=== PATIENT | female | born 1985 | race Caucasian/White ===

== ENCOUNTER 2016-10-09 21:54 | Emergency (ER) | payer OTHER ==
[2016-10-09] MEDS ORDERED: ONDANSETRON 4MG/2ML VIAL (J2405) As Ordered ONE (23:42)
[2016-10-10 00:29] LABS: BASO # 0.1 K/mm3 (0.0-0.2); EOS # 0.2 K/mm3 (0.0-0.50); EOS % 2.3 % (0.0-3.0); LARGE UNSTAINED CELL # 0.1 K/mm3 (0.0-0.4); LARGE UNSTAINED CELL % 1.3 % (0.0-4.0); LYMPH # 2.8 K/mm3 (1.5-4.5); LYMPH % 25.7 % (24.0-44.0); MEAN CORPUSCULAR HEMOGLOBIN 29.8 pg (27.0-33.0); MEAN CORPUSCULAR HGB CONC 34.8 g/dl (32.0-36.5); MEAN CORPUSCULAR VOLUME 85.6 fl (80.0-96.0); MONO # 0.4 K/mm3 (0.0-0.8); MONO % 3.6 % (0.0-5.0); NEUTROPHILS # 6.9 K/mm3 (1.8-7.7); PLATELET COUNT, AUTOMATED 193 k/mm3 (150-450); RED CELL DISTRIBUTION WIDTH 13.3 % (11.5-14.5); WHITE BLOOD COUNT 10.5 K/mm3 (4.0-10.0)
[2016-10-10 01:01] LABS: ANION GAP 7 MEQ/L (8-16); BLOOD UREA NITROGEN 12 MG/DL (7-18); CALCIUM LEVEL 8.1 MG/DL (8.5-10.1); CARBON DIOXIDE LEVEL 29 MEQ/L (21-32); CHLORIDE LEVEL 104 MEQ/L (98-107); CREATININE FOR GFR 0.61 MG/DL (0.55-1.02); GLOMERULAR FILTRATION RATE > 60.0 (>60); GLUCOSE, FASTING 82 MG/DL (70-105); HCG, SERUM QUANTITATIVE 17526 MIU/ML; POTASSIUM SERUM 3.6 MEQ/L (3.5-5.1); SODIUM LEVEL 140 MEQ/L (136-145)
--- NOTE | 2016-10-10 02:00 | REPUSA ---
CLINICAL HISTORY: determination. TECHNIQUE: Transabdominal ultrasound of the pelvis was performed. FINDINGS: Single, live intrauterine gestation. The estimated gestation age is 6 weeks and one day. pole measurement 5 mm. heart rate 96 beats per minute. No subchorionic hemorrhage was identified. No adnexal abnormality is noted. IMPRESSION: Single, intrauterine gestation. heart rate 96 beats per minute.
--- NOTE | 2016-10-10 02:05 | EDDOCDS ---
Physician Documentation [facility] Name: Esperanza Meek Age: 31 yrs Sex: Female : 1985 Arrival Date: 10/09/2016 Time: 21:54 Bed I7 / 29 Private MD: SD Theodore Davis Disposition: 10/10/16 01:46 Discharged to Home/Self Care. Impression: Mild hyperemesis gravidarum, Abdominal and pelvic pain, state - single intrauterine , first trimester. - Condition is Stable. - Discharge Instructions: First Trimester of , Abdominal Pain During , Hyperemesis Gravidarum. - Prescriptions for Vitamin 27- 0.8 mg Oral Tablet - take 1 tablet by ORAL route once daily; 30 tablet. Diclegis 10- 10 mg Oral - take 2 tablets by ORAL route 2 times per day; 30 tablet. - Local Pharmacy Hours, Medication Reconciliation form. - Follow up: Danny Nelson; When: Call to arrange an appointment; Reason: Recheck today's complaints, To establish care. Follow up: Emergency Department; When: As needed; Reason: Worsening of conditions, vaginal bleeding, severe vomiting or pain. - Problem is new. - Symptoms have improved. 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 discuss your current medications and recommendations for continued use with their office Historical: - Allergies: Doxycycline (Hives); Kiwi (Actinidia Chinensis); Latexshortness of breath; Novocain (Vomit); PENICILLINS (Anaphylaxis, Hives); SULFA (SULFONAMIDES) (Anaphylaxis, Hives); walnuts; Phenergan; - Home Meds: 1. pregabalin 75 mg Oral cap 1 cap 2 times per day 2. Suboxone 12-3 mg SL film 1.5 film - PMHx: Anxiety; addiction (oxycodone); Asthma; insomnia; Endometriosis; Fibromyalgia; - PSHx: right shoulder repair; right inguinal hernia; Cholecystectomy; left tube and ovary removed; - Social history: Smoking status: Patient uses tobacco products, current every day smoker. No barriers to communication noted, The patient speaks fluent Italian, Speaks appropriately for age, Preferred Language: Italian. - Family history: Not pertinent. - : The pt / caregiver states he / she is not on anticoagulants. Home medication list is obtained from the patient. - Exposure Risk Screening:: None identified. 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 4 in. (162.56 cm) (R); Pain /10; 10/10 02:04 BP 105 / 59; Pulse 64; Resp 16; Temp 98; Pulse Ox 98% on R/A; ld5 10/09 21:56 Body Mass Index 30.90 (81.65 kg, 162.56 cm) gr2 MDM: 10/09 23:14 Financial registration complete. pm4 23:37 IV Saline Lock ordered. ck7 23:37 NS 0.9% 1000 ml IV at bolus once ordered. ck7 23:37 Ondansetron 4 mg IVP once ordered. ck7 23:38 Urine Culture Ordered. EDMS 23:38 US 1st trimester Ordered. EDMS 23:38 CBC with Diff Ordered. EDMS 23:38 MED Profile Ordered. EDMS 23:38 UA Ordered. EDMS 23:38 Hcg, Serum Quantitative Ordered. EDMS 23:38 Type & Screen Ordered. EDMS 10/10 00:50 [facility] Payment Agreement was scanned into [employer] and attached to record. pm4 00:52 CBC with Diff Reviewed. ck7 00:52 UA Reviewed. ck7 01:12 MED Profile Reviewed. ar2 01:12 Hcg, Serum Quantitative Reviewed. ar2 01:12 Type & Screen Reviewed. ar2 Administered Medications: 10/09 23:57 Drug: NS 0.9% 1000 ml [sodium chloride 0.9 % intravenous solution] Route: IV; Rate: ld5 bolus; Site: left antecubital; 10/10 00:57 Follow up: IV Status: Completed infusion; IV Intake: 1000ml ld5 10/09 23:57 Drug: Ondansetron 4 mg [ondansetron HCl 2 mg/mL intravenous solution (2 mL)] Route: ld5 IVP; Site: left antecubital; 10/10 00:57 Follow up: Response: Nausea is decreased ld5 Signatures: Dispatcher [employer] EDSuzy Valdovinos RN RN lf1 Tomasz Castro, PAChenchoC PAChenchoC ar2 Francoise Rose RN RN ld5 Adolfo Baugh RPA-C RPA-Cck7 Zhou Nielsen, Reg Reg pm4 The chart was reviewed and I authenticate all verbal orders and agree with the evaluation and treatment provided.Attachments: 00:50 [facility] [place] pm4 MTDD
--- NOTE | 2016-10-10 02:06 | EDDOCDS ---
Nurse's Notes [facility] Name: Esperanza Meek Age: 31 yrs Sex: Female : 1985 Arrival Date: 10/09/2016 Time: 21:54 Bed I7 / 29 Private MD: MT Theodore Fulton Diagnosis: Mild hyperemesis gravidarum;Abdominal and pelvic pain; state-single intrauterine , first trimester Presentation: 10/09 22:07 Presenting complaint: Patient states: Cramping and lower abdominal pain with nausea lf1 that began two days after a home test was positive. Pt reports that she has a history of endometriosis and a previous tubal . Pain is currently 4/10 and in the right lower abdomen. Risk factors: the patient reports no vaginal bleeding. Adult Sepsis Screening: The patient does not have new or worsening altered mentation. Patient's respiratory rate is less than 22. Systolic blood pressure is greater than 100. Patient has a qSOFA score of 0- Negative Sepsis Screen. Suicide/Homicide risk assessment- the patient denies having any suicidal and/or homicidal ideations and does not present with any other emotional, behavioral or mental health complaints. Status: Patient is not a protective services case worker or dependent. Transition of care: patient was not received from another setting of care. 22:07 Acuity: ERIC Level 3 lf1 22:07 Method Of Arrival: Walkin/Carried/Asstd lf1 Triage Assessment: 22:14 General: Appears in no apparent distress, Behavior is anxious. Pain: Location: right lf1 lower quadrant and left lower quadrant Pain At worst was 5 out of 10 on a pain scale. HIV screening NA for this visit Offered previously. Neurological: Level of Consciousness is awake, alert. EENT: No deficits noted. Respiratory: Respiratory effort is even, unlabored. GI: Reports lower abdominal pain, nausea, vomiting. Derm: Skin is normal. 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 pregabalin 75 mg Oral cap 1 cap 2 times per day 2. Suboxone 12-3 mg SL film 1.5 film - PMHx: Anxiety; addiction (oxycodone); Asthma; insomnia; Endometriosis; Fibromyalgia; - PSHx: right shoulder repair; right inguinal hernia; Cholecystectomy; left tube and ovary removed; - Social history: Smoking status: Patient uses tobacco products, current every day smoker. No barriers to communication noted, The patient speaks fluent Estonian, Speaks appropriately for age, Preferred Language: Estonian. - Family history: Not pertinent. - : The pt / caregiver states he / she is not on anticoagulants. Home medication list is obtained from the patient. - Exposure Risk Screening:: None identified. Screenin:16 Screening information is obtained from the patient. Fall risk: No risks identified. lf1 Assistance ADL's: requires no assistance with activities of daily living. Abuse/DV Screen: The patient / caregiver reports he/she is: not in a situation that causes fear, pain or injury. Nutritional screening: No deficits noted. Advance Directives: Currently, there is no health care proxy. There is no active DNR order. home support is adequate. Assessment: 23:57 General: Appears in no apparent distress, Behavior is appropriate for age. Pain: ld5 Location: left lower quadrant and right lower quadrant Pain currently is 8 out of 10 on a pain scale. Quality of pain is described as sharp, stabbing. Neurological: Level of Consciousness is awake, obeys commands. Neurological: Reports dizziness. Respiratory: Airway is patent Respiratory effort is even, unlabored, Breath sounds are clear bilaterally. GI: Abdomen is non- distended Bowel sounds present X 4 quads. Abd is tender to palpation in right lower quadrant Reports lower abdominal pain, nausea, vomiting. : Denies vaginal bleeding. Derm: Skin is intact, Skin is dry. 10/10 01:00 General: Pt laying quietly in bed. Warm blankets provided. Awaiting US. Will continue ld5 to monitor. 01:32 General: Pt returned from US. Tolerated well. Ambulated to bathroom with no distress. ld5 Will continue to monitor. 02:04 General: Appears in no apparent distress. Pain: Pain currently is 2 out of 10 on a pain ld5 scale. Neurological: Level of Consciousness is awake, obeys commands. Respiratory: Airway is patent Respiratory effort is even, unlabored. Vital Signs: 10/09 21:56 BP 117 / 65; Pulse 101; Resp 18 S; Temp 97.3(O); Pulse Ox 100% on R/A; Weight 81.65 kg gr2 (R); Height 5 ft. 4 in. (162.56 cm) (R); Pain 6/10; 10/10 02:04 BP 105 / 59; Pulse 64; Resp 16; Temp 98; Pulse Ox 98% on R/A; ld5 10/09 21:56 Body Mass Index 30.90 (81.65 kg, 162.56 cm) gr2 Vitals: 10/09 21:56 Log In Time: October 09, 2016 at 21:56. gr2 ED Course: 21:56 Patient visited by Amanda Norris. gr2 21:56 [facility] is Private Physician. gr2 21:56 Patient moved to Waiting gr2 21:57 Patient visited by Amanda Norris. gr2 21:57 Patient moved to Pre RCE gr2 22:09 Triage Initiated lf1 22:26 Patient moved to Triage 3 cln 22:59 Adolfo Baugh RPA-C is PHCP. ck7 22:59 Bhupinder Coleman DO is Attending Physician. ck7 22:59 Patient visited by Adolfo Baugh RPA-C. ck7 23:29 Patient visited by Adolfo Baugh RPA-C. ck7 23:38 Patient moved to I7 / cz 23:57 The patient / caregiver is instructed regarding the plan of care and ED course. Patient michelle5 has correct armband on for positive identification. Placed in gown. Bed in low position. Call light in reach. 23:57 Type & Screen Sent. ld5 23:57 Hcg, Serum Quantitative Sent. ld5 23:57 Urine Culture Sent. ld5 23:57 UA Sent. ld5 23:57 MED Profile Sent. ld5 23:57 CBC with Diff Sent. ld5 23:57 Inserted saline lock: 20 gauge in left antecubital area and blood collected. The ld5 patient tolerated the procedure well. Labs drawn. (by ED staff). Sent per order to lab. Urine collected. Clean catch specimen. Urine specimen sent to lab. 23:59 Patient visited by Francoise Rose RN. ld5 10/10 00:45 Patient visited by Adolfo Baugh RPA-C. ck7 00:50 [facility] Payment Agreement was scanned into [employer] and attached to record. pm4 00:57 PHCP role handed off by Adolfo Baugh RPA-C ar2 00:57 Tomasz Castro PA-C is PHCP. ar2 01:31 Patient visited by Francoise Rose RN. ld5 01:32 Patient visited by Francoise Rose RN. ld5 01:45 Danny Nelson is Referral Physician. ar2 02:04 Discontinued lock intact, bleeding controlled, pressure dressing applied, No ld5 redness/swelling at site. No procedures done that require assistance. 02:05 Patient visited by Francoise Rose RN. ld5 Administered Medications: 10/09 23:57 Drug: NS 0.9% 1000 ml [sodium chloride 0.9 % intravenous solution] Route: IV; Rate: ld5 bolus; Site: left antecubital; 10/10 00:57 Follow up: IV Status: Completed infusion; IV Intake: 1000ml ld5 10/09 23:57 Drug: Ondansetron 4 mg [ondansetron HCl 2 mg/mL intravenous solution (2 mL)] Route: ld5 IVP; Site: left antecubital; 10/10 00:57 Follow up: Response: Nausea is decreased ld5 Intake: 00:57 IV: 1000.00ml; Total: 1000.00ml. ld5 Order Results: Lab Order: CBC with Diff; SPEC'M 10/09/16 23:55 Test: WHITE BLOOD COUNT; Value: 10.5; Range: 4.0-10.0; Abnormal: Above high normal; Units: K/mm3; Status: F Test: RED BLOOD COUNT; Value: 4.45; Range: 4.00-5.40; Units: M/mm3; Status: F Test: HEMOGLOBIN; Value: 13.3; Range: 12.0-16.0; Units: g/dl; Status: F Test: HEMATOCRIT; Value: 38.1; Range: 36.0-47.0; Units: %; Status: F Test: MEAN CORPUSCULAR VOLUME; Value: 85.6; Range: 80.0-96.0; Units: fl; Status: F Test: MEAN CORPUSCULAR HEMOGLOBIN; Value: 29.8; Range: 27.0-33.0; Units: pg; Status: F Test: MEAN CORPUSCULAR HGB CONC; Value: 34.8; Range: 32.0-36.5; Units: g/dl; Status: F Test: RED CELL DISTRIBUTION WIDTH; Value: 13.3; Range: 11.5-14.5; Units: %; Status: F Test: PLATELET COUNT, AUTOMATED; Value: 193; Range: 150-450; Units: k/mm3; Status: F Test: NEUTROPHILS %; Value: 66.0; Range: 36.0-66.0; Units: %; Status: F Test: LYMPH %; Value: 25.7; Range: 24.0-44.0; Units: %; Status: F Test: MONO %; Value: 3.6; Range: 0.0-5.0; Units: %; Status: F Test: EOS %; Value: 2.3; Range: 0.0-3.0; Units: %; Status: F Test: BASO %; Value: 1.0; Range: 0.0-1.0; Units: %; Status: F Test: LARGE UNSTAINED CELL %; Value: 1.3; Range: 0.0-4.0; Units: %; Status: F Test: NEUTROPHILS #; Value: 6.9; Range: 1.8-7.7; Units: K/mm3; Status: F Test: LYMPH #; Value: 2.8; Range: 1.5-4.5; Units: K/mm3; Status: F Test: MONO #; Value: 0.4; Range: 0.0-0.8; Units: K/mm3; Status: F Test: EOS #; Value: 0.2; Range: 0.0-0.50; Units: K/mm3; Status: F Test: BASO #; Value: 0.1; Range: 0.0-0.2; Units: K/mm3; Status: F Test: LARGE UNSTAINED CELL #; Value: 0.1; Range: 0.0-0.4; Units: K/mm3; Status: F Lab Order: MED Profile; SPEC'M 10/09/16 23:55 Test: GLUCOSE, FASTING; Value: 82; Range: 70-105; Units: MG/DL; Status: F Test: BLOOD UREA NITROGEN; Value: 12; Range: 7-18; Units: MG/DL; Status: F Test: CREATININE FOR GFR; Value: 0.61; Range: 0.55-1.02; Units: MG/DL; Status: F Test: GLOMERULAR FILTRATION RATE; Value: > 60.0; Range: >60; Status: F Test: SODIUM LEVEL; Value: 140; Range: 136-145; Units: MEQ/L; Status: F Test: POTASSIUM SERUM; Value: 3.6; Range: 3.5-5.1; Units: MEQ/L; Status: F Test: CHLORIDE LEVEL; Value: 104; Range: 98-107; Units: MEQ/L; Status: F Test: CARBON DIOXIDE LEVEL; Value: 29; Range: 21-32; Units: MEQ/L; Status: F Test: ANION GAP; Value: 7; Range: 8-16; Abnormal: Below low normal; Units: MEQ/L; Status: F Test: CALCIUM LEVEL; Value: 8.1; Range: 8.5-10.1; Abnormal: Below low normal; Units: MG/DL; Status: F Test Note: ; Units are mL/min/1.73 m2 Chronic Kidney Disease Staging per NKF: Stage I & II GFR >=60 Normal to Mildly Decreased Stage III GFR 30-59 Moderately Decreased Stage IV GFR 15-29 Severely Decreased Stage V GFR <15 Very Little GFR Left ESRD GFR <15 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 Lab Order: UA; SPEC'M 10/09/16 23:55 Test: APPEARANCE, URINE; Value: HAZY; Range: CLEAR; Status: F Test: COLOR, URINE; Value: YELLOW; Range: YELLOW; Status: F Test: PH,URINE; Value: 6.0; Range: 5.0-9.0; Units: UNITS; Status: F Test: SPECIFIC GRAVITY URINE AUTO; Value: 1.025; Range: 1.002-1.035; Status: F Test: PROTEIN, URINE AUTO; Value: NEGATIVE; Range: NEGATIVE; Units: mg/dL; Status: F Test: GLUCOSE, URINE (UA) AUTO; Value: NEGATIVE; Range: NEGATIVE; Units: mg/dL; Status: F Test: KETONE, URINE AUTO; Value: NEGATIVE; Range: NEGATIVE; Units: mg/dL; Status: F Test: UROBILINOGEN, URINE AUTO; Value: 0.2; Range: 0.0-2.0; Units: mg/dL; Status: F Test: BILIRUBIN, URINE AUTO; Value: NEGATIVE; Range: NEGATIVE; Status: F Test: NITRITE, URINE AUTO; Value: NEGATIVE; Range: NEGATIVE; Status: F Test: LEUKOCYTE ESTERASE, URINE AUTO; Value: NEGATIVE; Range: NEGATIVE; Status: F Test: BLOOD, URINE BLOOD; Value: NEGATIVE; Range: NEGATIVE; Status: F Test: WBC, URINE AUTO; Value: 0; Range: 0-3; Units: /HPF; Status: F Test: RBC, URINE AUTO; Value: 1; Range: 0-3; Units: /HPF; Status: F Test: BACTERIA, URINE AUTO; Value: 1+; Range: NEGATIVE; Abnormal: Above high normal; Status: F Test: SQUAMOUS EPITHELIAL CELL UR AU; Value: 6; Range: 0-6; Units: /HPF; Status: F Test: MUCUS, URINE; Value: SMALL; Range: NEGATIVE; Status: F Test: HYALINE CAST, URINE AUTO; Value: 0; Range: 0-1; Units: /LPF; Status: F Lab Order: Hcg, Serum Quantitative; SPEC'M 10/09/16 23:55 Test: HCG, SERUM QUANTITATIVE; Value: [id number]; Units: MIU/ML; Status: F Test Note: ; GESTATIONAL AGE APPROXIMATE HCG RANGE (MIU/ML) 0.2-1 WEEK 5-50 1-2 WEEKS 50-500 2-3 WEEKS 100-5,000 3-4 WEEKS 500-10,000 4-5 WEEKS 1,000-50,000 5-6 WEEKS 10,000-100,000 6-8 WEEKS 15,000-200,000 2-3 MONTHS 10,000-100,000 NON FEMALES LESS THAN 3.0 Patient samples may contain human heterophilic antibodies that could react with immunoassays to give falsely elevated or depressed results. This assay has been designed to minimize interference from heterophilic antibodies. Elevated hCG levels have also been associated with trophoblastic disease and nontrophoblastic neoplasms. The possibility of having these diseases should be considered before a diagnosis of is made. This test is not intended for use as a surrogate marker for aiding in the diagnosis or monitoring the treatment of cancer patients. Siemens avolution methodology. Lab Order: Type & Screen; SPEC'M 10/09/16 23:55 Test: BLOOD TYPE; Value: A POS; Status: F Test: AB SCREEN (INDIRECT CINDY)GEL; Value: NEGATIVE; Status: F Outcome: 01:46 Discharge ordered by Provider. ar2 02:04 Discharge Assessment: Patient awake, alert and oriented x 3. No cognitive and/or ld5 functional deficits noted. Patient verbalized understanding of disposition instructions. patient administered narcotics - no. The following High Risk Discharge criteria are identified: None. Discharged to home ambulatory. Condition: stable. Discharge instructions given to patient, Instructed on discharge instructions, follow up and referral plans. medication usage, Demonstrated understanding of instructions, medications, Pt was receptive of discharge instructions/ teaching. Prescriptions given X 2. Ultrasound Study completed. Property :Personal belongings accompany Pt. 02:05 Patient left the ED. ld5 Signatures: Andrew Langley, RN RN cz Suzy Moreno,RN RN lf1 Tomasz Castro, PAMed PAMed ar2 Francoise Rose,RN RN ld5 Adolfo Baugh RPA-C RPA-Eduardo7 Amanda Norris gr2 Judit Mata, ELECTRICIAN MASTER ELECTRICIAN MASTER manjun Zhou Nielsen, Reg Reg pm4 MTDD
--- NOTE | 2016-10-12 03:06 | EDDOCDS ---
Nurse's Notes [facility] Name: Esperanza Meek Age: 31 yrs Sex: Female : 1985 Arrival Date: 10/09/2016 Time: 21:54 Bed I7 / 29 Private MD: [place] Theodore [place] Diagnosis: Mild hyperemesis gravidarum;Abdominal and pelvic pain; state-single intrauterine , first trimester Presentation: 10/09 22:07 Presenting complaint: Patient states: Cramping and lower abdominal pain with nausea lf1 that began two days after a home test was positive. Pt reports that she has a history of endometriosis and a previous tubal . Pain is currently 4/10 and in the right lower abdomen. Risk factors: the patient reports no vaginal bleeding. Adult Sepsis Screening: The patient does not have new or worsening altered mentation. Patient's respiratory rate is less than 22. Systolic blood pressure is greater than 100. Patient has a qSOFA score of 0- Negative Sepsis Screen. Suicide/Homicide risk assessment- the patient denies having any suicidal and/or homicidal ideations and does not present with any other emotional, behavioral or mental health complaints. Status: Patient is not a clinical services consultant or dependent. Transition of care: patient was not received from another setting of care. 22:07 Acuity: REIC Level 3 lf1 22:07 Method Of Arrival: Walkin/Carried/Asstd lf1 Triage Assessment: 22:14 General: Appears in no apparent distress, Behavior is anxious. Pain: Location: right lf1 lower quadrant and left lower quadrant Pain At worst was 5 out of 10 on a pain scale. HIV screening NA for this visit Offered previously. Neurological: Level of Consciousness is awake, alert. EENT: No deficits noted. Respiratory: Respiratory effort is even, unlabored. GI: Reports lower abdominal pain, nausea, vomiting. Derm: Skin is normal. 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 pregabalin 75 mg Oral cap 1 cap 2 times per day 2. Suboxone 12-3 mg SL film 1.5 film - PMHx: Anxiety; addiction (oxycodone); Asthma; insomnia; Endometriosis; Fibromyalgia; - PSHx: right shoulder repair; right inguinal hernia; Cholecystectomy; left tube and ovary removed; - Social history: Smoking status: Patient uses tobacco products, current every day smoker. No barriers to communication noted, The patient speaks fluent Lebanese, Speaks appropriately for age, Preferred Language: Lebanese. - Family history: Not pertinent. - : The pt / caregiver states he / she is not on anticoagulants. Home medication list is obtained from the patient. - Exposure Risk Screening:: None identified. Screenin:16 Screening information is obtained from the patient. Fall risk: No risks identified. lf1 Assistance ADL's: requires no assistance with activities of daily living. Abuse/DV Screen: The patient / caregiver reports he/she is: not in a situation that causes fear, pain or injury. Nutritional screening: No deficits noted. Advance Directives: Currently, there is no health care proxy. There is no active DNR order. home support is adequate. Assessment: 23:57 General: Appears in no apparent distress, Behavior is appropriate for age. Pain: ld5 Location: left lower quadrant and right lower quadrant Pain currently is 8 out of 10 on a pain scale. Quality of pain is described as sharp, stabbing. Neurological: Level of Consciousness is awake, obeys commands. Neurological: Reports dizziness. Respiratory: Airway is patent Respiratory effort is even, unlabored, Breath sounds are clear bilaterally. GI: Abdomen is non- distended Bowel sounds present X 4 quads. Abd is tender to palpation in right lower quadrant Reports lower abdominal pain, nausea, vomiting. : Denies vaginal bleeding. Derm: Skin is intact, Skin is dry. 10/10 01:00 General: Pt laying quietly in bed. Warm blankets provided. Awaiting US. Will continue ld5 to monitor. 01:32 General: Pt returned from US. Tolerated well. Ambulated to bathroom with no distress. ld5 Will continue to monitor. 02:04 General: Appears in no apparent distress. Pain: Pain currently is 2 out of 10 on a pain ld5 scale. Neurological: Level of Consciousness is awake, obeys commands. Respiratory: Airway is patent Respiratory effort is even, unlabored. Vital Signs: 10/09 21:56 BP 117 / 65; Pulse 101; Resp 18 S; Temp 97.3(O); Pulse Ox 100% on R/A; Weight 81.65 kg gr2 (R); Height 5 ft. 4 in. (162.56 cm) (R); Pain 6/10; 10/10 02:04 BP 105 / 59; Pulse 64; Resp 16; Temp 98; Pulse Ox 98% on R/A; ld5 10/09 21:56 Body Mass Index 30.90 (81.65 kg, 162.56 cm) gr2 Vitals: 10/09 21:56 Log In Time: October 09, 2016 at 21:56. gr2 ED Course: 21:56 Patient visited by Amanda Norris. gr2 21:56 [facility] is Private Physician. gr2 21:56 Patient moved to Waiting gr2 21:57 Patient visited by Amanda Norris. gr2 21:57 Patient moved to Pre RCE gr2 22:09 Triage Initiated lf1 22:26 Patient moved to Triage 3 cln 22:59 Adolfo Baugh RPA-C is PHCP. ck7 22:59 Bhupinder Coleman DO is Attending Physician. ck7 22:59 Patient visited by Adolfo Baugh RPA-C. ck7 23:29 Patient visited by Adolfo Baugh RPA-C. ck7 23:38 Patient moved to I7 / cz 23:57 The patient / caregiver is instructed regarding the plan of care and ED course. Patient michelle5 has correct armband on for positive identification. Placed in gown. Bed in low position. Call light in reach. 23:57 Type & Screen Sent. ld5 23:57 Hcg, Serum Quantitative Sent. ld5 23:57 Urine Culture Sent. ld5 23:57 UA Sent. ld5 23:57 MED Profile Sent. ld5 23:57 CBC with Diff Sent. ld5 23:57 Inserted saline lock: 20 gauge in left antecubital area and blood collected. The ld5 patient tolerated the procedure well. Labs drawn. (by ED staff). Sent per order to lab. Urine collected. Clean catch specimen. Urine specimen sent to lab. 23:59 Patient visited by Francoise Rose RN. ld5 10/10 00:45 Patient visited by Adolfo Baugh RPA-C. ck7 00:50 [facility] Payment Agreement was scanned into [employer] and attached to record. pm4 00:57 PHCP role handed off by Adolfo Baugh RPA-C ar2 00:57 Tomasz Castro PA-C is PHCP. ar2 01:31 Patient visited by Francoise Rose RN. ld5 01:32 Patient visited by Francoise Rose RN. ld5 01:45 Danny Nelson is Referral Physician. ar2 02:04 Discontinued lock intact, bleeding controlled, pressure dressing applied, No ld5 redness/swelling at site. No procedures done that require assistance. 02:05 Patient visited by Francoise Rose RN. ld5 02:37 US 1st trimester Returned. EDMS 10:15 T-Sheet-- Draft Copy was scanned into [employer] and attached to record. gb Administered Medications: 10/09 23:57 Drug: NS 0.9% 1000 ml [sodium chloride 0.9 % intravenous solution] Route: IV; Rate: ld5 bolus; Site: left antecubital; 10/10 00:57 Follow up: IV Status: Completed infusion; IV Intake: 1000ml ld5 10/09 23:57 Drug: Ondansetron 4 mg [ondansetron HCl 2 mg/mL intravenous solution (2 mL)] Route: ld5 IVP; Site: left antecubital; 10/10 00:57 Follow up: Response: Nausea is decreased ld5 Intake: 00:57 IV: 1000.00ml; Total: 1000.00ml. ld5 Order Results: Lab Order: CBC with Diff; SPEC'M 10/09/16 23:55 Test: WHITE BLOOD COUNT; Value: 10.5; Range: 4.0-10.0; Abnormal: Above high normal; Units: K/mm3; Status: F Test: RED BLOOD COUNT; Value: 4.45; Range: 4.00-5.40; Units: M/mm3; Status: F Test: HEMOGLOBIN; Value: 13.3; Range: 12.0-16.0; Units: g/dl; Status: F Test: HEMATOCRIT; Value: 38.1; Range: 36.0-47.0; Units: %; Status: F Test: MEAN CORPUSCULAR VOLUME; Value: 85.6; Range: 80.0-96.0; Units: fl; Status: F Test: MEAN CORPUSCULAR HEMOGLOBIN; Value: 29.8; Range: 27.0-33.0; Units: pg; Status: F Test: MEAN CORPUSCULAR HGB CONC; Value: 34.8; Range: 32.0-36.5; Units: g/dl; Status: F Test: RED CELL DISTRIBUTION WIDTH; Value: 13.3; Range: 11.5-14.5; Units: %; Status: F Test: PLATELET COUNT, AUTOMATED; Value: 193; Range: 150-450; Units: k/mm3; Status: F Test: NEUTROPHILS %; Value: 66.0; Range: 36.0-66.0; Units: %; Status: F Test: LYMPH %; Value: 25.7; Range: 24.0-44.0; Units: %; Status: F Test: MONO %; Value: 3.6; Range: 0.0-5.0; Units: %; Status: F Test: EOS %; Value: 2.3; Range: 0.0-3.0; Units: %; Status: F Test: BASO %; Value: 1.0; Range: 0.0-1.0; Units: %; Status: F Test: LARGE UNSTAINED CELL %; Value: 1.3; Range: 0.0-4.0; Units: %; Status: F Test: NEUTROPHILS #; Value: 6.9; Range: 1.8-7.7; Units: K/mm3; Status: F Test: LYMPH #; Value: 2.8; Range: 1.5-4.5; Units: K/mm3; Status: F Test: MONO #; Value: 0.4; Range: 0.0-0.8; Units: K/mm3; Status: F Test: EOS #; Value: 0.2; Range: 0.0-0.50; Units: K/mm3; Status: F Test: BASO #; Value: 0.1; Range: 0.0-0.2; Units: K/mm3; Status: F Test: LARGE UNSTAINED CELL #; Value: 0.1; Range: 0.0-0.4; Units: K/mm3; Status: F Lab Order: MED Profile; SPEC'M 10/09/16 23:55 Test: GLUCOSE, FASTING; Value: 82; Range: 70-105; Units: MG/DL; Status: F Test: BLOOD UREA NITROGEN; Value: 12; Range: 7-18; Units: MG/DL; Status: F Test: CREATININE FOR GFR; Value: 0.61; Range: 0.55-1.02; Units: MG/DL; Status: F Test: GLOMERULAR FILTRATION RATE; Value: > 60.0; Range: >60; Status: F Test: SODIUM LEVEL; Value: 140; Range: 136-145; Units: MEQ/L; Status: F Test: POTASSIUM SERUM; Value: 3.6; Range: 3.5-5.1; Units: MEQ/L; Status: F Test: CHLORIDE LEVEL; Value: 104; Range: 98-107; Units: MEQ/L; Status: F Test: CARBON DIOXIDE LEVEL; Value: 29; Range: 21-32; Units: MEQ/L; Status: F Test: ANION GAP; Value: 7; Range: 8-16; Abnormal: Below low normal; Units: MEQ/L; Status: F Test: CALCIUM LEVEL; Value: 8.1; Range: 8.5-10.1; Abnormal: Below low normal; Units: MG/DL; Status: F Test Note: ; Units are mL/min/1.73 m2 Chronic Kidney Disease Staging per NKF: Stage I & II GFR >=60 Normal to Mildly Decreased Stage III GFR 30-59 Moderately Decreased Stage IV GFR 15-29 Severely Decreased Stage V GFR <15 Very Little GFR Left ESRD GFR <15 on BLOCK CUTTER Lab Order: UA; SPEC'M 10/09/16 23:55 Test: APPEARANCE, URINE; Value: HAZY; Range: CLEAR; Status: F Test: COLOR, URINE; Value: YELLOW; Range: YELLOW; Status: F Test: PH,URINE; Value: 6.0; Range: 5.0-9.0; Units: UNITS; Status: F Test: SPECIFIC GRAVITY URINE AUTO; Value: 1.025; Range: 1.002-1.035; Status: F Test: PROTEIN, URINE AUTO; Value: NEGATIVE; Range: NEGATIVE; Units: mg/dL; Status: F Test: GLUCOSE, URINE (UA) AUTO; Value: NEGATIVE; Range: NEGATIVE; Units: mg/dL; Status: F Test: KETONE, URINE AUTO; Value: NEGATIVE; Range: NEGATIVE; Units: mg/dL; Status: F Test: UROBILINOGEN, URINE AUTO; Value: 0.2; Range: 0.0-2.0; Units: mg/dL; Status: F Test: BILIRUBIN, URINE AUTO; Value: NEGATIVE; Range: NEGATIVE; Status: F Test: NITRITE, URINE AUTO; Value: NEGATIVE; Range: NEGATIVE; Status: F Test: LEUKOCYTE ESTERASE, URINE AUTO; Value: NEGATIVE; Range: NEGATIVE; Status: F Test: BLOOD, URINE BLOOD; Value: NEGATIVE; Range: NEGATIVE; Status: F Test: WBC, URINE AUTO; Value: 0; Range: 0-3; Units: /HPF; Status: F Test: RBC, URINE AUTO; Value: 1; Range: 0-3; Units: /HPF; Status: F Test: BACTERIA, URINE AUTO; Value: 1+; Range: NEGATIVE; Abnormal: Above high normal; Status: F Test: SQUAMOUS EPITHELIAL CELL UR AU; Value: 6; Range: 0-6; Units: /HPF; Status: F Test: MUCUS, URINE; Value: SMALL; Range: NEGATIVE; Status: F Test: HYALINE CAST, URINE AUTO; Value: 0; Range: 0-1; Units: /LPF; Status: F Lab Order: Urine Culture; SPEC'M 10/09/16 23:55 Test: URINE CULTURE; Value: <EXTERNAL COMMENT eCWMed> FULL REPORT IN LAB NOTES (eCW and Medent).; Status: F Test: URINE CULTURE; Value: URINE CULTURE RESULT NO GROWTH CLINICAL SIGNIFICANCE 1 ORGANISM; Status: F Lab Order: Hcg, Serum Quantitative; SPEC'M 10/09/16 23:55 Test: HCG, SERUM QUANTITATIVE; Value: 18118; Units: MIU/ML; Status: F Test Note: ; GESTATIONAL AGE APPROXIMATE HCG RANGE (MIU/ML) 0.2-1 WEEK 5-50 1-2 WEEKS 50-500 2-3 WEEKS 100-5,000 3-4 WEEKS 500-10,000 4-5 WEEKS 1,000-50,000 5-6 WEEKS 10,000-100,000 6-8 WEEKS 15,000-200,000 2-3 MONTHS 10,000-100,000 NON FEMALES LESS THAN 3.0 Patient samples may contain human heterophilic antibodies that could react with immunoassays to give falsely elevated or depressed results. This assay has been designed to minimize interference from heterophilic antibodies. Elevated hCG levels have also been associated with trophoblastic disease and nontrophoblastic neoplasms. The possibility of having these diseases should be considered before a diagnosis of is made. This test is not intended for use as a surrogate marker for aiding in the diagnosis or monitoring the treatment of cancer patients. [employer] methodology. Lab Order: Type & Screen; SPEC'M 10/09/16 23:55 Test: BLOOD TYPE; Value: A POS; Status: F Test: AB SCREEN (INDIRECT CINDY)GEL; Value: NEGATIVE; Status: F Radiology Order: US 1st trimester Test: US 1st trimester REASON FOR EXAMINATION: R/O DEMISE; ; CLINICAL HISTORY: determination.; TECHNIQUE: Transabdominal ultrasound of the pelvis was performed.; FINDINGS:; Single, live intrauterine gestation.; The estimated gestation age is 6 weeks and one day.; pole measurement 5 mm.; heart rate 96 beats per minute.; No subchorionic hemorrhage was identified.; No adnexal abnormality is noted.; IMPRESSION:; Single, intrauterine gestation.; heart rate 96 beats per minute.; ; Outcome: 01:46 Discharge ordered by Provider. ar2 02:04 Discharge Assessment: Patient awake, alert and oriented x 3. No cognitive and/or ld5 functional deficits noted. Patient verbalized understanding of disposition instructions. patient administered narcotics - no. The following High Risk Discharge criteria are identified: None. Discharged to home ambulatory. Condition: stable. Discharge instructions given to patient, Instructed on discharge instructions, follow up and referral plans. medication usage, Demonstrated understanding of instructions, medications, Pt was receptive of discharge instructions/ teaching. Prescriptions given X 2. Ultrasound Study completed. Property :Personal belongings accompany Pt. 02:05 Patient left the ED. ld5 Signatures: Dispatcher [facility] HospitalFlexible Technologies, LLCGallup Indian Medical CenterAndrew Medina RN RN cz Mirela Mendoza, Reg Reg gb Moreno,Suzy,RN RN lf1 Tomasz Castro, PA-C PA-C ar2 Francoise Rose,FREDY RN ld5 Adolfo Baugh, RPA-C RPA-Cck7 Amanda Norris gr2 Esperanza, Judit, RATE REVIEWER RATE REVIEWER cln Zhou Nielsen, Reg Reg pm4 Chart Complete MTDD
--- NOTE | 2016-10-12 03:06 | EDDOCDS ---
Physician Documentation [facility] Name: Esperanza Meek Age: 31 yrs Sex: Female : 1985 Arrival Date: 10/09/2016 Time: 21:54 Bed I7 / 29 Private MD: [place] Theodore Davis Disposition: 10/10/16 01:46 Discharged to Home/Self Care. Impression: Mild hyperemesis gravidarum, Abdominal and pelvic pain, state - single intrauterine , first trimester. - Condition is Stable. - Discharge Instructions: First Trimester of , Abdominal Pain During , Hyperemesis Gravidarum. - Prescriptions for Vitamin 27- 0.8 mg Oral Tablet - take 1 tablet by ORAL route once daily; 30 tablet. Diclegis 10- 10 mg Oral - take 2 tablets by ORAL route 2 times per day; 30 tablet. - Local Pharmacy Hours, Medication Reconciliation form. - Follow up: Danny Nelson; When: Call to arrange an appointment; Reason: Recheck today's complaints, To establish care. Follow up: Emergency Department; When: As needed; Reason: Worsening of conditions, vaginal bleeding, severe vomiting or pain. - Problem is new. - Symptoms have improved. 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 discuss your current medications and recommendations for continued use with their office Historical: - Allergies: Doxycycline (Hives); Kiwi (Actinidia Chinensis); Latexshortness of breath; Novocain (Vomit); PENICILLINS (Anaphylaxis, Hives); SULFA (SULFONAMIDES) (Anaphylaxis, Hives); walnuts; Phenergan; - Home Meds: 1. pregabalin 75 mg Oral cap 1 cap 2 times per day 2. Suboxone 12-3 mg SL film 1.5 film - PMHx: Anxiety; addiction (oxycodone); Asthma; insomnia; Endometriosis; Fibromyalgia; - PSHx: right shoulder repair; right inguinal hernia; Cholecystectomy; left tube and ovary removed; - Social history: Smoking status: Patient uses tobacco products, current every day smoker. No barriers to communication noted, The patient speaks fluent Mohawk, Speaks appropriately for age, Preferred Language: Mohawk. - Family history: Not pertinent. - : The pt / caregiver states he / she is not on anticoagulants. Home medication list is obtained from the patient. - Exposure Risk Screening:: None identified. 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 4 in. (162.56 cm) (R); Pain 6/10; 10/10 02:04 BP 105 / 59; Pulse 64; Resp 16; Temp 98; Pulse Ox 98% on R/A; ld5 10/09 21:56 Body Mass Index 30.90 (81.65 kg, 162.56 cm) gr2 MDM: 10/09 23:14 Financial registration complete. pm4 23:37 IV Saline Lock ordered. ck7 23:37 NS 0.9% 1000 ml IV at bolus once ordered. ck7 23:37 Ondansetron 4 mg IVP once ordered. ck7 23:38 Urine Culture Ordered. EDMS 23:38 US 1st trimester Ordered. EDMS 23:38 CBC with Diff Ordered. EDMS 23:38 MED Profile Ordered. EDMS 23:38 UA Ordered. EDMS 23:38 Hcg, Serum Quantitative Ordered. EDMS 23:38 Type & Screen Ordered. EDMS 10/10 00:50 [facility] Payment Agreement was scanned into [employer] and attached to record. pm4 00:52 CBC with Diff Reviewed. ck7 00:52 UA Reviewed. ck7 01:12 MED Profile Reviewed. ar2 01:12 Hcg, Serum Quantitative Reviewed. ar2 01:12 Type & Screen Reviewed. ar2 10:15 T-Sheet-- Draft Copy was scanned into [employer] and attached to record. gb Administered Medications: 10/09 23:57 Drug: NS 0.9% 1000 ml [sodium chloride 0.9 % intravenous solution] Route: IV; Rate: ld5 bolus; Site: left antecubital; 10/10 00:57 Follow up: IV Status: Completed infusion; IV Intake: 1000ml ld5 10/09 23:57 Drug: Ondansetron 4 mg [ondansetron HCl 2 mg/mL intravenous solution (2 mL)] Route: ld5 IVP; Site: left antecubital; 10/10 00:57 Follow up: Response: Nausea is decreased ld5 Signatures: Dispatcher [employer] EDMirela Almonte, Reg Reg gb Suzy Moreno,RN RN lf1 Tomasz Castro, PAMed PAMed ar2 Francoise Rose RN RN ld5 Adolfo Baugh, RPAChenchoC RPA-Cck7 Zhou Nielsen, Reg Reg pm4 The chart was reviewed and I authenticate all verbal orders and agree with the evaluation and treatment provided.Attachments: 00:50 [facility] Payment Agreement pm4 10:15 T-Sheet-- Draft Copy gb Chart Complete MTDD
--- NOTE | 2016-10-12 03:06 | EDDOCDS ---
Physician Documentation [facility] Name: Esperanza Meek Age: 31 yrs Sex: Female : 1985 Arrival Date: 10/09/2016 Time: 21:54 Bed I7 / 29 Private MD: [place] Theodore Davis Disposition: 10/10/16 01:46 Discharged to Home/Self Care. Impression: Mild hyperemesis gravidarum, Abdominal and pelvic pain, state - single intrauterine , first trimester. - Condition is Stable. - Discharge Instructions: First Trimester of , Abdominal Pain During , Hyperemesis Gravidarum. - Prescriptions for Vitamin 27- 0.8 mg Oral Tablet - take 1 tablet by ORAL route once daily; 30 tablet. Diclegis 10- 10 mg Oral - take 2 tablets by ORAL route 2 times per day; 30 tablet. - Local Pharmacy Hours, Medication Reconciliation form. - Follow up: Danny Nelson; When: Call to arrange an appointment; Reason: Recheck today's complaints, To establish care. Follow up: Emergency Department; When: As needed; Reason: Worsening of conditions, vaginal bleeding, severe vomiting or pain. - Problem is new. - Symptoms have improved. 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 discuss your current medications and recommendations for continued use with their office Historical: - Allergies: Doxycycline (Hives); Kiwi (Actinidia Chinensis); Latexshortness of breath; Novocain (Vomit); PENICILLINS (Anaphylaxis, Hives); SULFA (SULFONAMIDES) (Anaphylaxis, Hives); walnuts; Phenergan; - Home Meds: 1. pregabalin 75 mg Oral cap 1 cap 2 times per day 2. Suboxone 12-3 mg SL film 1.5 film - PMHx: Anxiety; addiction (oxycodone); Asthma; insomnia; Endometriosis; Fibromyalgia; - PSHx: right shoulder repair; right inguinal hernia; Cholecystectomy; left tube and ovary removed; - Social history: Smoking status: Patient uses tobacco products, current every day smoker. No barriers to communication noted, The patient speaks fluent Frisian, Speaks appropriately for age, Preferred Language: Frisian. - Family history: Not pertinent. - : The pt / caregiver states he / she is not on anticoagulants. Home medication list is obtained from the patient. - Exposure Risk Screening:: None identified. 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 4 in. (162.56 cm) (R); Pain 6/10; 10/10 02:04 BP 105 / 59; Pulse 64; Resp 16; Temp 98; Pulse Ox 98% on R/A; ld5 10/09 21:56 Body Mass Index 30.90 (81.65 kg, 162.56 cm) gr2 MDM: 10/09 23:14 Financial registration complete. pm4 23:37 IV Saline Lock ordered. ck7 23:37 NS 0.9% 1000 ml IV at bolus once ordered. ck7 23:37 Ondansetron 4 mg IVP once ordered. ck7 23:38 Urine Culture Ordered. EDMS 23:38 US 1st trimester Ordered. EDMS 23:38 CBC with Diff Ordered. EDMS 23:38 MED Profile Ordered. EDMS 23:38 UA Ordered. EDMS 23:38 Hcg, Serum Quantitative Ordered. EDMS 23:38 Type & Screen Ordered. EDMS 10/10 00:50 [facility] Payment Agreement was scanned into [employer] and attached to record. pm4 00:52 CBC with Diff Reviewed. ck7 00:52 UA Reviewed. ck7 01:12 MED Profile Reviewed. ar2 01:12 Hcg, Serum Quantitative Reviewed. ar2 01:12 Type & Screen Reviewed. ar2 10:15 T-Sheet-- Draft Copy was scanned into [employer] and attached to record. gb Administered Medications: 10/09 23:57 Drug: NS 0.9% 1000 ml [sodium chloride 0.9 % intravenous solution] Route: IV; Rate: ld5 bolus; Site: left antecubital; 10/10 00:57 Follow up: IV Status: Completed infusion; IV Intake: 1000ml ld5 10/09 23:57 Drug: Ondansetron 4 mg [ondansetron HCl 2 mg/mL intravenous solution (2 mL)] Route: ld5 IVP; Site: left antecubital; 10/10 00:57 Follow up: Response: Nausea is decreased ld5 Signatures: Dispatcher [employer] EDMirela Almonte, Reg Reg gb Suzy Moreno,RN RN lf1 Tomasz Castro, PAMed PAMed ar2 Francoise Rose RN RN ld5 Adolfo Baugh, RPAChenchoC RPA-Cck7 Zhou Nielsen, Reg Reg pm4 The chart was reviewed and I authenticate all verbal orders and agree with the evaluation and treatment provided.Attachments: 00:50 [facility] Payment Agreement pm4 10:15 T-Sheet-- Draft Copy gb Chart Complete MTDD
== END 2016-10-10 02:05 | disposition home or self-care (01) ==
LOC: M ED 21:54
DX: O21.0 Mild hyperemesis gravidarum (principal); O99.89 Other specified diseases and conditions complicating pregnancy, childbirth and the puerperium; R10.9 Unspecified abdominal pain; O99.351 Diseases of the nervous system complicating pregnancy, first trimester; G47.00 Insomnia, unspecified; O26.891 Other specified pregnancy related conditions, first trimester; N80.9 Endometriosis, unspecified; M79.7 Fibromyalgia; O99.511 Diseases of the respiratory system complicating pregnancy, first trimester; J45.909 Unspecified asthma, uncomplicated; O99.341 Other mental disorders complicating pregnancy, first trimester; F41.9 Anxiety disorder, unspecified; O99.321 Drug use complicating pregnancy, first trimester; F11.20 Opioid dependence, uncomplicated; O99.331 Smoking (tobacco) complicating pregnancy, first trimester; F17.210 Nicotine dependence, cigarettes, uncomplicated; Z79.899 Other long term (current) drug therapy; Z88.1 Allergy status to other antibiotic agents; Z91.018 Allergy to other foods; Z91.040 Latex allergy status; Z88.4 Allergy status to anesthetic agent; Z88.0 Allergy status to penicillin; Z88.2 Allergy status to sulfonamides; Z88.8 Allergy status to other drugs, medicaments and biological substances; Z3A.01 Less than 8 weeks gestation of pregnancy
CPT/HCPCS: 36415; 76801; 80048; 81001; 84702; 85025; 86850; 86900; 86901; 87086; 96361; 96374; 99284; J2405

== ENCOUNTER → 2016-10-29 | Outpatient (REF) | payer OTHER ==
[2016-10-29 14:20] LABS: AMPHETAMINES URINE REFLEX NEGATIVE (NEGATIVE); BARBITURATES URINE REFLEX NEGATIVE (NEGATIVE); BENZODIAZEPINES URINE REFLEX NEGATIVE (NEGATIVE); COCAINE METABOLITE URINE REFLE NEGATIVE (NEGATIVE); CONTROL LINE INT CTR LINE PRESENT; METHADONE URINE REFLEX NEGATIVE (NEGATIVE); OPIATES URINE REFLEX NEGATIVE (NEGATIVE); TRICYCLIC ANTIDEPRESS UR REFL NEGATIVE (NEGATIVE)
== END ==
LOC: M LAB REF 13:04
PROVIDERS: ATTEND Advanced Practice Midwife
DX: Z34.81 Encounter for supervision of other normal pregnancy, first trimester (principal); Z36 Encounter for antenatal screening of mother; Z3A.00 Weeks of gestation of pregnancy not specified

== ENCOUNTER → 2016-12-24 | Outpatient (REF) | payer OTHER ==
[2016-12-24 18:17] LABS: MEAN CORPUSCULAR HEMOGLOBIN 30.6 pg (27.0-33.0); MEAN CORPUSCULAR HGB CONC 33.7 g/dl (32.0-36.5); MEAN CORPUSCULAR VOLUME 90.8 fl (80.0-96.0); RED CELL DISTRIBUTION WIDTH 13.7 % (11.5-14.5)
== END ==
LOC: M LAB REF 16:45
PROVIDERS: ATTEND Obstetrics & Gynecology
DX: Z34.82 Encounter for supervision of other normal pregnancy, second trimester (principal)

== ENCOUNTER → 2017-01-21 | Outpatient (REF) | payer OTHER | LOC: M LAB REF 16:41 | PROVIDERS: ATTEND Obstetrics & Gynecology | DX: Z34.02 Encounter for supervision of normal first pregnancy, second trimester (principal) ==

== ENCOUNTER → 2017-01-30 | Outpatient (REF) | payer OTHER | LOC: M LAB REF 14:57 | PROVIDERS: ATTEND Advanced Practice Midwife | DX: R10.2 Pelvic and perineal pain (principal) ==

== ENCOUNTER → 2017-03-27 | Outpatient (CLI) | payer OTHER ==
[~2017-03-27] MED LIST: ACET50TA PO; IBUP-1114 PO; NAPR-855 PO; PRENTAB44 PO; SUBO12MI SL; SUBO8MIS SL; ZOFR4SOL PO
[2017-03-27 20:22] LABS: MEAN CORPUSCULAR HEMOGLOBIN 31.9 pg (27.0-33.0); MEAN CORPUSCULAR HGB CONC 35.3 g/dl (32.0-36.5); MEAN CORPUSCULAR VOLUME 90.3 fl (80.0-96.0); RED CELL DISTRIBUTION WIDTH 12.6 % (11.5-14.5); WHITE BLOOD COUNT 10.6 K/mm3 (4.0-10.0)
[2017-03-27 20:48] LABS: ALT/SGPT 14 U/L (12-78); AST/SGOT 9 U/L (15-37); BILIRUBIN,TOTAL 0.2 MG/DL (0.2-1.0); GLOMERULAR FILTRATION RATE > 60.0 (>60); URIC ACID 3.8 MG/DL (2.6-6.0)
== END ==
LOC: M LAB 17:48
PROVIDERS: ATTEND Advanced Practice Midwife
DX: O13.3 Gestational [pregnancy-induced] hypertension without significant proteinuria, third trimester (principal); Z3A.00 Weeks of gestation of pregnancy not specified

== ENCOUNTER → 2017-04-09 | Outpatient (REF) | payer OTHER ==
[2017-04-09 18:02] LABS: ALBUMIN 2.9 GM/DL (3.2-5.2); ALBUMIN/GLOBULIN RATIO 0.81 (1.00-1.93); ALKALINE PHOSPHATASE 114 U/L (45-117); ALT/SGPT 17 U/L (12-78); ANION GAP 9 MEQ/L (8-16); AST/SGOT 8 U/L (15-37); BILIRUBIN,TOTAL 0.3 MG/DL (0.2-1.0); BLOOD UREA NITROGEN 6 MG/DL (7-18); CALCIUM LEVEL 8.4 MG/DL (8.5-10.1); CARBON DIOXIDE LEVEL 24 MEQ/L (21-32); CHLORIDE LEVEL 99 MEQ/L (98-107); CREATININE FOR GFR 0.49 MG/DL (0.55-1.02); GLOMERULAR FILTRATION RATE > 60.0 (>60); GLUCOSE, FASTING 82 MG/DL (70-105); POTASSIUM SERUM 3.6 MEQ/L (3.5-5.1); SODIUM LEVEL 132 MEQ/L (136-145); TOTAL PROTEIN 6.5 GM/DL (6.4-8.2)
== END ==
LOC: M LAB REF 17:19
PROVIDERS: ATTEND Advanced Practice Midwife
DX: O26.613 Liver and biliary tract disorders in pregnancy, third trimester (principal); Z3A.00 Weeks of gestation of pregnancy not specified

== ENCOUNTER → 2017-05-13 | Outpatient (REF) | payer MEDICAID, OTHER | LOC: M LAB REF 16:58 | PROVIDERS: ATTEND Advanced Practice Midwife | DX: O09.893 Supervision of other high risk pregnancies, third trimester (principal); Z3A.00 Weeks of gestation of pregnancy not specified ==

== ENCOUNTER 2017-05-30 13:30 | Inpatient (IN) | payer OTHER ==
[2017-05-30] VITALS (13 sets, daily range): BP systolic 117–138; BP diastolic 58–81
[~2017-05-30] VITALS: Ht 162.6 cm; Wt 90.8 kg
[2017-05-30] MEDS ORDERED: LACTATED RINGER'S 1000 ML IV STA (13:37)
[2017-05-30] MEDS ORDERED: LR 1,000 ML IV SCH (13:37)
[2017-05-30] MEDS ORDERED: SUBO8MIS SL (15:45)
[2017-05-30] MEDS ORDERED: SUBO12MI SL (15:45)
[2017-05-30 16:23] LABS: MEAN CORPUSCULAR HEMOGLOBIN 31.4 pg (27.0-33.0); MEAN CORPUSCULAR HGB CONC 35.1 g/dl (32.0-36.5); MEAN CORPUSCULAR VOLUME 89.6 fl (80.0-96.0); RED CELL DISTRIBUTION WIDTH 13.4 % (11.5-14.5); WHITE BLOOD COUNT 11.5 K/mm3 (4.0-10.0)
[2017-05-30 16:40] LABS: ALT/SGPT 13 U/L (12-78); AST/SGOT 13 U/L (15-37); BILIRUBIN,TOTAL 0.3 MG/DL (0.2-1.0); CREATININE FOR GFR 0.49 MG/DL (0.55-1.02); GLOMERULAR FILTRATION RATE > 60.0 (>60); URIC ACID 5.3 MG/DL (2.6-6.0)
[2017-05-30] MEDS ORDERED: miSOPROStol 50 MCG 1/2 TAB (S0191) PO ONE (16:45)
[2017-05-30] MEDS ORDERED: FENTANYL 2MCG/ML ROPIVACAINE 0.2% IN 0.9% NACL 200ML IVBAG As Ordered ONE (19:52)
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
[2017-05-30] MEDS ORDERED: OXYTOCIN 30 UNITS IN 0.9% NaCl 500ML IV BAG (J2590) As Ordered ONE (20:38)
[2017-05-30] MEDS ORDERED: KETOROLAC 30 MG/ML VIAL (J1885) As Ordered ONE (20:39)
[2017-05-30] MEDS ORDERED: OXYTOCIN DRIP 30 UNITS in APPROPRIATE DILUENT 1 EA IV SCH (21:23)
[2017-05-30] MEDS ORDERED: DIBUCAINE 1% OINTMENT 30GM TOP PRN (21:30)
[2017-05-30] MEDS ORDERED: RHOGAM 300 MCG (1500 IU) INJ (J2790) IM SCH (21:30)
[2017-05-30] MEDS ORDERED: ANUSOL HC CREAM 30GM TOP PRN (21:30)
[2017-05-30] MEDS ORDERED: METHYLERGONOVINE MALEATE 0.2 MG TAB PO PRN (21:30)
[2017-05-30] MEDS ORDERED: MEASLES,MUMPS,RUBELLA VACCINE INJ (MMR-II) (90707) SC SCH (21:30)
[2017-05-30] MEDS ORDERED: DOCUSATE SODIUM 100 MG CAP PO PRN (21:30)
[2017-05-30] MEDS ORDERED: LIDOCAINE 1% MDV INJ 50 ML VIAL INFIL ONE (21:30)
[2017-05-30] MEDS ORDERED: KETOROLAC 30 MG/ML VIAL (J1885) IV ONE (21:30)
--- NOTE | 2017-05-30 23:07 | IPNPDOC ---
Text Note Date of Service The patient was seen on 05/30/17. NOTE SUBJECTIVE: Patient is uncomfortable and feeling pressure. She desires her epidural. OBJECTIVE: FHR: 130, moderate variability, positive accelerations, early decelerations. Contractions every 1 to 3 minutes. SVE: 3/100/0-1 station, moderate amount of blood noted. Patient has spontaneously ruptured. Vital signs : see below. ASSESSMENT: IUP at 39.2 weeks gestation, active labor, Category I FHR tracing, GHTN, PLAN:Dr. Coronado notified of patient's bleeding and status. Reviewed with patient again that she could have her epidural whenever she wanted it due to her history of having a fast labor. Patient desires epidural. Bolus has already been given and anesthesia notified by nursing staff. Anticipate cervical change and . Will continue to monitor bleeding. VS,Fishbone, I+O VS, Fishbone, I+O Laboratory Tests 05/30/17 16:03 Red Blood Count 3.64 L, Mean Corpuscular Volume 89.6, Mean Corpuscular Hemoglobin 31.4, Mean Corpuscular Hemoglobin Concent 35.1, Red Cell Distribution Width 13.4, Aspartate Amino Transf (AST/SGOT) 13 L, Alanine Aminotransferase (ALT/SGPT) 13, Lactate Dehydrogenase 155, Total Bilirubin 0.3, Uric Acid 5.3 Vital Signs Vital Signs Label Value Date Time Pulse 74 05/30/172015 Pulse 73 05/30/171650 Respiratory Rate 18 bpm 05/30/17 165 Blood Pressure Assessment 138/77 (97) 05/30/17 165 Source Automatic Cuff (NIBP) Pulse 88 05/30/17 181 Respiratory Rate 18 bpm 05/30/171811 Blood Pressure Assessment 135/79 (97) 05/30/171811 Source Automatic Cuff (NIBP) Pulse 85 05/30/171909 Respiratory Rate 18 bpm 05/30/171909 Blood Pressure Assessment 119/58 (78) 05/30/171909 Source Automatic Cuff (NIBP) Respiratory Rate 18 bpm 05/30/172015 Blood Pressure Assessment 126/71 (89) 05/30/172015 Source Automatic Cuff (NIBP) CAMI PURDY CNM May 30, 2017 21:35
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
[2017-05-31] MEDS: IBUPROFEN 800 MG TAB PO PRN ×2 (05:36→15:40)
[2017-05-31 06:03] VITALS: BP 112/67
[2017-05-31] MEDS: PRENATAL VITAMINS CHEWABLE TABLET PO SCH (08:41)
[2017-05-31] MEDS: ACETAMINOPHEN 500 MG TAB PO PRN ×3 (08:42→21:58)
[2017-05-31] MEDS: BUPRENORPHINE/NALOXONE 8-2MG SUBLINGUAL TABLET(SUBOXONE) SL SCH (08:42)
[2017-05-31] MEDS ORDERED: medroxyPROGESTERone ACET IM SUSP 150 MG/ML VIAL (J1050) IM ONE (13:00)
[2017-05-31 18:01] VITALS: BP 122/81
[2017-05-31] MEDS ORDERED: NICOTINE 14 MG/24 HR TRANSDERMAL TD PRN (21:30)
[2017-06-01 05:46] VITALS: BP 108/55
[2017-06-01] MEDS: BUPRENORPHINE/NALOXONE 8-2MG SUBLINGUAL TABLET(SUBOXONE) SL SCH (09:00)
[2017-06-01] MEDS: PRENATAL VITAMINS CHEWABLE TABLET PO SCH (09:00)
[2017-06-01] MEDS: IBUPROFEN 800 MG TAB PO PRN ×2 (09:00→17:54)
[2017-06-01] MEDS: ACETAMINOPHEN 500 MG TAB PO PRN (11:27)
--- NOTE | 2017-06-01 13:05 | REP ---
Right lower extremity deep vein duplex ultrasound: The deep veins demonstrate normal compression, normal Doppler color flow and normal Doppler waveforms with respiration augmentation at multiple levels from the popliteal vein to the common femoral vein. Impression: There is no deep vein thrombus in the right lower extremity. Signed by Kory Potts MD 06/01/2017 12:56 P
[2017-06-01] MEDS ORDERED: PRENTAB44 PO (17:39)
[2017-06-01] MEDS ORDERED: ACET50TA PO (17:39)
[2017-06-01] MEDS ORDERED: IBUP-1114 PO (17:39)
[2017-06-01] MEDS: medroxyPROGESTERone ACET IM SUSP 150 MG/ML VIAL (J1050) IM ONE ×2 (17:54→18:00)
[2017-06-01 18:04] VITALS: BP 160/85
[2017-06-02] MEDS ORDERED: NAPR-855 PO (18:31)
[2017-06-02] MEDS ORDERED: ZOFR4SOL PO (18:31)
== END 2017-06-01 18:06 | disposition home or self-care (01) | DRG 560 ==
LOC: M LDI 13:30 → M OBS 23:00
PROVIDERS: ADMIT Advanced Practice Midwife; ATTEND Advanced Practice Midwife
PROC: 10E0XZZ Delivery of Products of Conception, External Approach (ICD-10-PCS; principal; 2017-05-30)
PROC: 0KQM0ZZ Repair Perineum Muscle, Open Approach (ICD-10-PCS; 2017-05-30)
PROC: 3E0DXGC Introduction of Other Therapeutic Substance into Mouth and Pharynx, External Approach (ICD-10-PCS; 2017-05-30)
DX: O13.4 Gestational [pregnancy-induced] hypertension without significant proteinuria, complicating childbirth (principal); O44.43 Low lying placenta NOS or without hemorrhage, third trimester; Z3A.39 39 weeks gestation of pregnancy; Z37.0 Single live birth; F17.200 Nicotine dependence, unspecified, uncomplicated; J45.909 Unspecified asthma, uncomplicated; F11.21 Opioid dependence, in remission; Z79.899 Other long term (current) drug therapy; Z88.1 Allergy status to other antibiotic agents; Z91.040 Latex allergy status; Z88.0 Allergy status to penicillin; Z88.8 Allergy status to other drugs, medicaments and biological substances; Z88.2 Allergy status to sulfonamides; Z91.018 Allergy to other foods; O69.82X0 Labor and delivery complicated by other cord entanglement, without compression, not applicable or unspecified; O70.1 Second degree perineal laceration during delivery; O62.3 Precipitate labor; O99.334 Smoking (tobacco) complicating childbirth; O99.52 Diseases of the respiratory system complicating childbirth

== ENCOUNTER 2017-06-02 18:12 | Emergency (ER) | payer OTHER ==
[~2017-06-02] VITALS: Ht 162.6 cm; Wt 89.2 kg
[~2017-06-02 18:12] MED LIST changes: -NAPR-855 PO; -ZOFR4SOL PO
[2017-06-02] MEDS ORDERED: ZOFR4SOL PO (18:31)
[2017-06-02] MEDS ORDERED: NAPR-855 PO (18:31)
--- NOTE | 2017-06-02 22:00 | REPUSA ---
Clinical history: Pain, swelling. Findings: The common femoral, superficial femoral, popliteal, and other deep venous structures compre ss normally and demonstrate normal color Doppler flow. Normal venous waveforms with augmentation are seen. Impression: No evidence of deep vein thrombosis in the right femoral popliteal venous system.
[2017-06-02 22:46] VITALS: BP 122/56
== END 2017-06-02 22:47 | disposition home or self-care (01) ==
LOC: M ED 18:12
DX: M79.89 Other specified soft tissue disorders (principal); Z87.891 Personal history of nicotine dependence

== ENCOUNTER → 2017-10-29 | Outpatient (CLI) | payer MEDICAID | LOC: M OUTALCOH 08:13 | DX: F11.20 Opioid dependence, uncomplicated (principal) ==

== ENCOUNTER 2018-07-11 23:20 | Emergency (ER) | payer MEDICAID ==
[2018-07-11] MEDS: ERYTHROMYCIN OPHTH OINT OS (23:55)
== END 2018-07-12 00:06 | disposition home or self-care (01) ==
LOC: M ED 07-12 00:06
DX: H10.022 Other mucopurulent conjunctivitis, left eye (principal); Z91.018 Allergy to other foods; Z88.1 Allergy status to other antibiotic agents; Z88.4 Allergy status to anesthetic agent; Z88.0 Allergy status to penicillin; Z88.2 Allergy status to sulfonamides; Z79.899 Other long term (current) drug therapy
CPT/HCPCS: 99282

== ENCOUNTER 2018-08-28 19:29 | Emergency (ER) | payer MEDICAID | END 2018-08-28 21:09 | disposition home or self-care (01) | LOC: M ED 19:29 | DX: H10.45 Other chronic allergic conjunctivitis (principal); M79.7 Fibromyalgia; Z87.59 Personal history of other complications of pregnancy, childbirth and the puerperium; J45.909 Unspecified asthma, uncomplicated; K92.2 Gastrointestinal hemorrhage, unspecified; F41.9 Anxiety disorder, unspecified; F32.9 Major depressive disorder, single episode, unspecified; F90.9 Attention-deficit hyperactivity disorder, unspecified type; F40.01 Agoraphobia with panic disorder; Z86.14 Personal history of Methicillin resistant Staphylococcus aureus infection; Z79.899 Other long term (current) drug therapy; Z88.0 Allergy status to penicillin; Z88.2 Allergy status to sulfonamides; Z88.1 Allergy status to other antibiotic agents; Z91.018 Allergy to other foods; Z91.040 Latex allergy status | CPT/HCPCS: 99283 ==

== ENCOUNTER → 2018-09-09 | Outpatient (CLI) | payer MEDICAID ==
[~2018-09-09] MED LIST changes: -ACET50TA PO; +ADDE10CA3 PO; +ADDE30CA3 PO; +CITA-230 PO; +ERYTOIN8 OS; +MAPA500T2 PO; +NAPR-855 PO; +OFLO3OPSO OP; +OLOP1OPD OU; +PREG100CA PO; +ZOFR4SOL PO
== END ==
LOC: M OUTALCOH 08:15
PROVIDERS: ATTEND Psychiatry & Neurology Psychiatry
DX: Z03.89 Encounter for observation for other suspected diseases and conditions ruled out (principal)

== ENCOUNTER → 2018-11-03 | Outpatient (REF) | payer MEDICAID, OTHER ==
[2018-11-03 13:21] LABS: HEMATOCRIT 38.6 % (36.0-47.0); HEMOGLOBIN 12.8 g/dl (12.0-15.5); MEAN CORPUSCULAR HEMOGLOBIN 31.6 pg (27.0-33.0); MEAN CORPUSCULAR HGB CONC 33.2 g/dl (32.0-36.5); MEAN CORPUSCULAR VOLUME 95.3 fl (80.0-96.0); PLATELET COUNT, AUTOMATED 251 10^3/uL (150-450); RED BLOOD COUNT 4.05 10^6/uL (4.00-5.40); WHITE BLOOD COUNT 8.9 10^3/uL (4.0-10.0)
[2018-11-03 14:02] LABS: ALBUMIN 4.2 GM/DL (3.2-5.2); ALT/SGPT 55 U/L (12-78); BILIRUBIN,TOTAL 0.2 MG/DL (0.2-1.0); BLOOD UREA NITROGEN 17 MG/DL (7-18); CALCIUM LEVEL 8.8 MG/DL (8.5-10.1); CARBON DIOXIDE LEVEL 32 MEQ/L (21-32); CHLORIDE LEVEL 101 MEQ/L (98-107); CREATININE FOR GFR 0.67 MG/DL (0.55-1.30); FREE T4 0.83 NG/DL (0.76-1.46); GLOMERULAR FILTRATION RATE > 60.0 (>60); GLUCOSE, FASTING 51 MG/DL (70-100); HCG, SERUM QUANTITATIVE < 1.0 MIU/ML; POTASSIUM SERUM 4.5 MEQ/L (3.5-5.1); SODIUM LEVEL 139 MEQ/L (136-145); TOTAL PROTEIN 7.7 GM/DL (6.4-8.2)
== END ==
LOC: M LAB REF 12:12
PROVIDERS: ATTEND Nurse Practitioner Primary Care
DX: N91.2 Amenorrhea, unspecified (principal); R53.83 Other fatigue

== ENCOUNTER 2019-04-30 18:16 | Emergency (ER) | payer OTHER ==
[~2019-04-30] VITALS: Ht 162.6 cm; Wt 79.5 kg
[~2019-04-30 18:16] MED LIST changes: -CITA-230 PO; +CITA20TA7 PO; -OLOP1OPD OU; +PATA2.5S OU
[2019-04-30 19:05] LABS: BASO % 0.4 % (0.0-1.0); EOS # 0.2 10^3/uL (0.0-0.50); EOS % 2.1 % (0.0-3.0); HEMATOCRIT 36.4 % (36.0-47.0); HEMOGLOBIN 12.6 g/dl (12.0-15.5); LYMPH # 2.7 10^3/uL (1.5-4.5); LYMPH % 33.7 % (24.0-44.0); MEAN CORPUSCULAR HEMOGLOBIN 29.9 pg (27.0-33.0); MEAN CORPUSCULAR HGB CONC 34.6 g/dl (32.0-36.5); MEAN CORPUSCULAR VOLUME 86.5 fl (80.0-96.0); MONO # 0.3 10^3/uL (0.0-0.8); MONO % 3.6 % (0.0-5.0); NEUTROPHILS # 4.9 10^3/uL (1.8-7.7); PLATELET COUNT, AUTOMATED 169 10^3/uL (150-450); RED BLOOD COUNT 4.21 10^6/uL (4.00-5.40); WHITE BLOOD COUNT 8.1 10^3/uL (4.0-10.0)
[2019-04-30 19:30] LABS: ALBUMIN 3.5 GM/DL (3.2-5.2); ALT/SGPT 15 U/L (12-78); BILIRUBIN,DIRECT 0.1 MG/DL (0.0-0.2); BILIRUBIN,TOTAL 0.3 MG/DL (0.2-1.0); BLOOD UREA NITROGEN 16 MG/DL (7-18); CALCIUM LEVEL 8.3 MG/DL (8.5-10.1); CARBON DIOXIDE LEVEL 27 MEQ/L (21-32); CHLORIDE LEVEL 107 MEQ/L (98-107); CREATININE FOR GFR 0.79 MG/DL (0.55-1.30); GLOMERULAR FILTRATION RATE > 60.0 (>60); GLUCOSE, FASTING 87 MG/DL (70-100); POTASSIUM SERUM 3.6 MEQ/L (3.5-5.1); SODIUM LEVEL 142 MEQ/L (136-145); TOTAL PROTEIN 6.6 GM/DL (6.4-8.2)
--- NOTE | 2019-04-30 19:45 | ECGEPIP ---
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
[2019-04-30 22:15] VITALS: BP 102/55
== END 2019-04-30 22:37 | disposition home or self-care (01) ==
LOC: M ED 18:16
DX: R56.9 Unspecified convulsions (principal); F19.10 Other psychoactive substance abuse, uncomplicated; F90.9 Attention-deficit hyperactivity disorder, unspecified type; F43.10 Post-traumatic stress disorder, unspecified; F32.9 Major depressive disorder, single episode, unspecified; Z72.0 Tobacco use; Z79.899 Other long term (current) drug therapy; Z91.018 Allergy to other foods; Z88.0 Allergy status to penicillin; Z88.2 Allergy status to sulfonamides; Z88.1 Allergy status to other antibiotic agents; Z88.8 Allergy status to other drugs, medicaments and biological substances

== ENCOUNTER 2019-07-09 22:43 | Emergency (ER) | payer OTHER ==
[~2019-07-09] VITALS: Ht 162.6 cm; Wt 78.6 kg
[2019-07-09 22:43] VITALS: BP 131/63
[2019-07-09] MEDS ORDERED: BUPR150T5 (22:58)
[2019-07-10 00:24] LABS: AMPHETAMINES LEVEL URINE POSITIVE (NEGATIVE); BARBITURATES URINE NEGATIVE (NEGATIVE); BENZODIAZEPINES URINE NEGATIVE (NEGATIVE); CANNABINOIDS URINE NEGATIVE (NEGATIVE); COCAINE METABOLITE URINE NEGATIVE (NEGATIVE); METHADONE URINE NEGATIVE (NEGATIVE); OPIATES URINE NEGATIVE (NEGATIVE); PHENCYCLIDINE URINE NEGATIVE (NEGATIVE)
[2019-07-11] MEDS ORDERED: CLIN1GEL22 (13:39)
[2019-07-11] MEDS ORDERED: NAPR-837 PO (19:36)
== END 2019-07-10 01:58 | disposition home or self-care (01) ==
LOC: M ED 22:43
DX: F15.120 Other stimulant abuse with intoxication, uncomplicated (principal); F17.200 Nicotine dependence, unspecified, uncomplicated; Z91.018 Allergy to other foods; Z88.2 Allergy status to sulfonamides; Z88.8 Allergy status to other drugs, medicaments and biological substances; Z79.899 Other long term (current) drug therapy

== ENCOUNTER 2019-07-11 13:30 | Emergency (ER) | payer OTHER ==
[~2019-07-11] VITALS: Ht 162.6 cm; Wt 78.6 kg
[~2019-07-11 13:30] MED LIST changes: +BUPR150T5
[2019-07-11] MEDS ORDERED: CLIN1GEL22 (13:39)
[2019-07-11] MEDS ORDERED: NS 1,000 ML IV ONE (16:00)
[2019-07-11 16:13] LABS: HEMATOCRIT 38.9 % (36.0-47.0); HEMOGLOBIN 13.6 g/dl (12.0-15.5); MEAN CORPUSCULAR VOLUME 88.6 fl (80.0-96.0); PLATELET COUNT, AUTOMATED 206 10^3/uL (150-450); RED BLOOD COUNT 4.39 10^6/uL (4.00-5.40); WHITE BLOOD COUNT 7.6 10^3/uL (4.0-10.0)
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
[2019-07-11] MEDS ORDERED: NAPR-837 PO (19:36)
[2019-07-11] MEDS ORDERED: NAPROXEN 250 MG TAB PO ONE (19:45)
[2019-07-11] MEDS ORDERED: CYCLOBENZAPRINE 10 MG TAB PO ONE (19:45)
[2019-07-11 19:47] VITALS: BP 120/69
== END 2019-07-11 19:49 | disposition home or self-care (01) ==
LOC: M ED 13:30
DX: S10.81XA Abrasion of other specified part of neck, initial encounter (principal); S06.0X0A Concussion without loss of consciousness, initial encounter; S80.11XA Contusion of right lower leg, initial encounter; S40.021A Contusion of right upper arm, initial encounter; S40.022A Contusion of left upper arm, initial encounter; Y04.8XXA Assault by other bodily force, initial encounter; Y92.89 Other specified places as the place of occurrence of the external cause; Y93.89 Activity, other specified; Y99.9 Unspecified external cause status; M79.7 Fibromyalgia; I10 Essential (primary) hypertension; J45.909 Unspecified asthma, uncomplicated; Z87.448 Personal history of other diseases of urinary system; F41.9 Anxiety disorder, unspecified; F32.9 Major depressive disorder, single episode, unspecified; F90.9 Attention-deficit hyperactivity disorder, unspecified type; F40.00 Agoraphobia, unspecified; Z86.14 Personal history of Methicillin resistant Staphylococcus aureus infection; Z79.899 Other long term (current) drug therapy; Z88.0 Allergy status to penicillin; Z88.2 Allergy status to sulfonamides; Z88.1 Allergy status to other antibiotic agents; Z88.8 Allergy status to other drugs, medicaments and biological substances; Z91.018 Allergy to other foods

== ENCOUNTER → 2019-10-05 | Outpatient (REF) | payer OTHER, MEDICAID ==
[~2019-10-05] MED LIST changes: +CLIN1GEL22; +NAPR-837 PO
== END ==
LOC: M LAB REF 12:27
PROVIDERS: ATTEND Ophthalmology
DX: N89.8 Other specified noninflammatory disorders of vagina (principal)

== ENCOUNTER → 2020-11-27 | Outpatient (REF) | payer OTHER, MEDICAID ==
[2020-11-28 14:02] LABS: APPEARANCE, URINE CLOUDY (CLEAR); BACTERIA, URINE AUTO 1+ (NEGATIVE); BILIRUBIN, URINE AUTO NEGATIVE (NEGATIVE); BLOOD, URINE BLOOD 2+ (NEGATIVE); COLOR, URINE AMBER (YELLOW); GLUCOSE, URINE (UA) AUTO NEGATIVE (NEGATIVE); KETONE, URINE AUTO NEGATIVE (NEGATIVE); LEUKOCYTE ESTERASE, URINE AUTO 3+ (NEGATIVE); MUCUS, URINE SMALL (NEGATIVE); NITRITE, URINE AUTO NEGATIVE (NEGATIVE); PROTEIN, URINE AUTO 1+ mg/dL (NEGATIVE); RBC, URINE AUTO 6 /HPF (0-3); SPECIFIC GRAVITY URINE AUTO 1.019 (1.002-1.035); SQUAMOUS EPITHELIAL CELL UR AU 1 /HPF (0-6); UROBILINOGEN, URINE AUTO 0.2 mg/dL (0.0-2.0); WBC, URINE AUTO 160 /HPF (0-3)
== END ==
LOC: M LAB REF 13:45
PROVIDERS: ATTEND Physician Assistant Medical
DX: R30.0 Dysuria (principal)

== ENCOUNTER 2021-07-10 19:14 | Emergency (ER) | payer MEDICAID, OTHER ==
[~2021-07-10] VITALS: Ht 162.6 cm; Wt 74.1 kg
--- OUTSIDE RECORDS SUMMARY | 2021-07-10 19:20 | CCD ---
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 Name Role Phone Maring, Eddie PA Unavailable Unavailable Maring, Eddie PA Unavailable Unavailable Maring, Eddie PA Unavailable Unavailable Maring, Eddie PA Unavailable Unavailable Maring, Eddie PA Unavailable Unavailable Maring, Eddie PA Unavailable Unavailable Maring, Eddie PA Unavailable Unavailable Maring, Eddie PA Unavailable Unavailable Maring, Eddie PA Unavailable Unavailable Maring, Eddie PA Unavailable Unavailable Maring, Eddie PA Unavailable Unavailable Maring, Eddie PA Unavailable Unavailable Maring, Eddie PA Unavailable Unavailable Maring, Eddie PA Unavailable Unavailable Maring, Eddie PA Unavailable Unavailable Maring, Eddie PA Unavailable Unavailable Gloria Turner Unavailable Unavailable Fady Palma MD Unavailable Unavailable Fady Palma MD Unavailable Unavailable Fady Palma MD Unavailable Unavailable Fady Palma MD Unavailable Unavailable Fady Palma MD Unavailable Unavailable Fady Palma MD Unavailable Unavailable Feola, T Lauren PA Unavailable Unavailable Feola, T Lauren PA Unavailable Unavailable Feola, T Lauren PA Unavailable Unavailable Feola, T Lauren PA Unavailable Unavailable Feola, T Lauren PA Unavailable Unavailable Feola, T Lauren PA Unavailable Unavailable Feola, T Lauren PA Unavailable Unavailable Feola, T Lauren PA Unavailable Unavailable Feola, T Lauren PA Unavailable Unavailable Feola, T Lauren PA Unavailable Unavailable Feola, T Lauren PA Unavailable Unavailable Feola, T Lauren PA Unavailable Unavailable Feola, T Lauren PA Unavailable Unavailable Feola, T Lauren PA Unavailable Unavailable Feola, T Lauren PA Unavailable Unavailable Feola, T Lauren PA Unavailable Unavailable Feola, T Lauren PA Unavailable Unavailable Feola, T Lauren PA Unavailable Unavailable Feola, T Lauren PA Unavailable Unavailable Feola, T Lauren PA Unavailable Unavailable Feola, T Lauren PA Unavailable Unavailable Feola, T Lauren PA Unavailable Unavailable Feola, T Lauren PA Unavailable Unavailable Feola, T Lauren PA Unavailable Unavailable Feola, T Lauren PA Unavailable Unavailable Feola, T Lauren PA Unavailable Unavailable Feola, T Lauren PA Unavailable Unavailable Feola, T Lauren PA Unavailable Unavailable Feola, T Lauren PA Unavailable Unavailable Feola, T Lauren PA Unavailable Unavailable Feola, T Lauren PA Unavailable Unavailable Feola, T Lauren PA Unavailable Unavailable Feola, T Lauren PA Unavailable Unavailable Feola, T Lauren PA Unavailable Unavailable Feola, T Lauren PA Unavailable Unavailable Feola, T Lauren PA Unavailable Unavailable Feola, T Lauren PA Unavailable Unavailable Feola, T Lauren PA Unavailable Unavailable Feola, T Lauren PA Unavailable Unavailable Feola, T Lauren PA Unavailable Unavailable Feola, T Lauren PA Unavailable Unavailable Tomasz Castro Unavailable [phone] Tomasz Castro Unavailable [phone] Tomasz Castro Unavailable [phone] Tomasz Castro Unavailable [phone] Tomasz Castro Unavailable [phone] Tomasz Castro Unavailable [phone] NON, PHYSICIAN STAFF Unavailable Unavailable Re-disclosure Warning The records that you are about to access may contain information from federally-assisted alcohol or drug abuse programs. If such information is present, then the following federally mandated warning applies: This information has been disclosed to you from records protected by federal confidentiality rules (42 CFR part 2). The federal rules prohibit you from making any further disclosure of this information unless further disclosure is expressly permitted by the written consent of the person to whom it pertains or as otherwise permitted by 42 CFR part 2. A general authorization for the release of medical or other information is NOT sufficient for this purpose. The Federal rules restrict any use of the information to criminally investigate or prosecute any alcohol or drug abuse patient.The records that you are about to access may contain highly sensitive health information, the redisclosure of which is protected by Article 27-F of the [facility] Public Health law. If you continue you may have access to information: Regarding HIV / AIDS; Provided by facilities licensed or operated by the [facility] Office of Mental Health; or Provided by the [facility] Office for People With Developmental Disabilities. If such information is present, then the following [facility] mandated warning applies: This information has been disclosed to you from confidential records which are protected by state law. State law prohibits you from making any further disclosure of this information without the specific written consent of the person to whom it pertains, or as otherwise permitted by law. Any unauthorized further disclosure in violation of state law may result in a fine or senior living sentence or both. A general authorization for the release of medical or other information is NOT sufficient authorization for further disc losure. Allergies and Adverse Reactions Type Description Substance Reaction Status Data Source(s ) Drug allergy NOVOCAINE NOVOCAINE SWELLING [facility] Propensity to adverse reactions LATEX LATEX RASH [facility] Drug allergy DOXYCYCLINE DOXYCYCLINE SWELLING [facility] Drug allergy CODEINE CODEINE [facility] Propensity to adverse reactions SULFA (sulfonamide) SULFA (sulfo namide) ANAPHYLAXIS [facility] Propensity to adverse reactions PCN (penicillin) PCN (penicillin) SWE LLING [facility] Family History Family Member Name Family Member Gender Family Member Status Date o f Status Description Data Source(s) Unknown Female Problem [facility] ([facility]) Unknown Female Problem MEDENT ([facility], ) Encounters Encounter Providers Location Date Indications Data Source(s ) Emergency Attender: Fady Palma MDConsultant: STAFF NON 07/06/2021 02:41:00 AM EDT - 07/06/2021 06:10:00 AM EDT [facility] Patient discharged. Outpatient Attender: Tomasz Patel tender: Gloria Henriquezender: Eddie ANTUNEZ 07/02/2021 12:59:35 PM EDT - 07/02/2021 01:55:05 PM EDT [facility] ([facility]) Outpatient Attender: Lauren ANTUNEZ 08:01:36 PM EDT - 01/10/2021 08:30:45 PM EDT [facility] ([facility] ) Medications Medication Brand Name Start Date Product Form Dose Route Admi nistrative Instructions Pharmacy Instructions Status Indications Reaction Description Data Source(s) Clindamycin 300 MG Oral Capsule CLINDAMYCIN HCL 07/02/2021 12:00 :00 AM EDT capsule 30 TAKE ONE CAPSULE BY MOUTH THREE TIMES A DAY FOR 10 DAYS TAKE ONE CAPSULE BY MOUTH THREE TIMES A DAY FOR 10 DAYS SOLD: 07/02/2021 [facility] 800 mg 07/02/2021 12:00:00 AM EDT tablet 30 TAKE ONE TABLET BY MOUTH EVERY 8 HOURS NEEDED TAKE ONE TABLET BY MOUTH EVERY 8 HOURS NEEDED SOLD: 07/02/2021 [facility] 8-2 mg 06/25/2021 12:00:00 AM EDT film 56 PLACE ONE TO TWO FILMS UNDER THE TONGUE EVERY DAY FOR ADDICTION AND NEEDED FOR PAIN MAXIMUM DAILY DOSE = 2 PLACE ONE TO TWO FILMS UNDER THE TONGUE EVERY DAY FOR ADDICTION AND NEEDED FOR PAIN MAXIMUM DAILY DOSE = 2 SOLD: 06/28/2021 [facility] 24 HR Amphetamine aspartate 2.5 MG / Amp hetamine Sulfate 2.5 MG / Dextroamphetamine saccharate 2.5 MG / Dextroamphetamine Sulfate 2.5 MG Extended Release Oral Capsule 10 mg DEXTROAMPHETAMINE/AMPHETAMINE 06/21/2021 12:00:00 AM EDT capsule,extended release 24hr 28 ON E TABLET BY MOUTH AT NOON MAXIMUM DAILY DOSE = ONE TABLET ONE TABLET BY MOUTH AT NOON MAXIMUM DAILY DOSE = ONE T ABLET SOLD: 06/24/2021 [facility] 24 HR Amphetamine aspartate 7.5 MG / Amp hetamine Sulfate 7.5 MG / Dextroamphetamine saccharate 7.5 MG / Dextroamphetamine Sulfate 7.5 MG Extended Release Oral Capsule 30 mg DEXTROAMPHETAMINE/AMPHETAMINE 06/21/2021 12:00:00 AM EDT capsule,extended release 24hr 28 TA KE ONE CAPSULE BY MOUTH EVERY MORNING MAXIMUM DAILY DOSE = ONE CAPSULE TAKE ONE CAPSULE BY MOUTH EVERY MORNING MAXIMUM DAILY DOSE = ONE CAPSULE SOLD: 06/24/2021 [facility] 150 mg 05/16/2021 12:00:00 AM EDT tablet sustained-releas e 12 hr 28 TAKE ONE TABLET BY MOUTH EVERY DAY TAKE ONE TABLET BY MOUTH EVERY DAY SOLD: 05/17/2021 [facility] 24 HR Amphetamine aspartate 7.5 MG / Amp hetamine Sulfate 7.5 MG / Dextroamphetamine saccharate 7.5 MG / Dextroamphetamine Sulfate 7.5 MG Extended Release Oral Capsule 30 mg DEXTROAMPHETAMINE/AMPHETAMINE 05/12/2021 12:00:00 AM EDT capsule,extended release 24hr 28 TA KE ONE CAPSULE BY MOUTH EVERY MORNING MAXIMUM DAILY DOSE = 1 TAKE ONE CAPSULE BY MOUTH EVERY MORNING MAXIMUM DAILY DOSE = 1 SOLD: 05/16/2021 [facility] 8-2 mg 05/10/2021 12:00:00 AM EDT film 56 PLACE ONE TO TWO FILMS UNDER THE TONGUE EVERY DAY FOR ADDICTION AND NEEDED FOR PAIN MAXIMUM DAILY DOSE = 2 PLACE ONE TO TWO FILMS UNDER THE TONGUE EVERY DAY FOR ADDICTION AND NEEDED FOR PAIN MAXIMUM DAILY DOSE = 2 SOLD: 05/16/2021 [facility] 24 HR Amphetamine aspartate 2.5 MG / Amp hetamine Sulfate 2.5 MG / Dextroamphetamine saccharate 2.5 MG / Dextroamphetamine Sulfate 2.5 MG Extended Release Oral Capsule 10 mg DEXTROAMPHETAMINE/AMPHETAMINE 05/10/2021 12:00:00 AM EDT capsule,extended release 24hr 28 TA KE 1 CAPSULE BY MOUTH AT NOON MAXIMUM DAILY DOSE = 1 TAKE 1 CAPSULE BY MOUTH AT NOON MAXIMUM DAILY DOSE = 1 SOLD: 05/16/2021 [facility] 24 HR Amphetamine aspartate 7.5 MG / Amp hetamine Sulfate 7.5 MG / Dextroamphetamine saccharate 7.5 MG / Dextroamphetamine Sulfate 7.5 MG Extended Release Oral Capsule 30 mg DEXTROAMPHETAMINE/AMPHETAMINE 04/17/2021 12:00:00 AM EDT capsule,extended release 24hr 28 TA KE ONE CAPSULE BY MOUTH EVERY MORNING MAXIMUM DAILY DOSE = 1 CAPSULE TAKE ONE CAPSULE BY MOUTH EVERY MORNING MAXIMUM DAILY DOSE = 1 CAPSULE SOLD: 04/22/2021 [facility] 24 HR Amphetamine aspartate 2.5 MG / Amp hetamine Sulfate 2.5 MG / Dextroamphetamine saccharate 2.5 MG / Dextroamphetamine Sulfate 2.5 MG Extended Release Oral Capsule 10 mg DEXTROAMPHETAMINE/AMPHETAMINE 04/11/2021 12:00:00 AM EDT capsule,extended release 24hr 28 TA KE ONE CAPSULE BY MOUTH EVERY DAY AT NOON MAXIMUM DAILY DOSE = 1 CAPSULE TAKE ONE CAPSULE BY MOUTH EVERY DAY AT N OON MAXIMUM DAILY DOSE = 1 CAPSULE SOLD: 04/15/2021 [facility] 8-2 mg 04/11/2021 12:00:00 AM EDT film 56 PLACE ONE TO TWO FILMS UNDER THE TONGUE EVERY DAY FOR ADDICTION AND NEEDED FOR PAIN MAXIMUM DAILY DOSE = [address] ONE TO TWO FILMS UNDER THE TONGUE EVERY DAY FOR ADDICTION AND NEEDED FOR PAIN MAXIMUM DAILY DOSE = 2 FILMS SOLD: 04/15/2021 [facility] 24 HR Amphetamine aspartate 7.5 MG / Amp hetamine Sulfate 7.5 MG / Dextroamphetamine saccharate 7.5 MG / Dextroamphetamine Sulfate 7.5 MG Extended Release Oral Capsule 30 mg DEXTROAMPHETAMINE/AMPHETAMINE 03/14/2021 12:00:00 AM EDT capsule,extended release 24hr 28 TA KE ONE CAPSULE BY MOUTH EVERY MORNING MAXIMUM DAILY DOSE = ONE TAKE ONE CAPSULE BY MOUTH EVERY MORNING MAXIMUM DAILY DOSE = ONE SOLD: 03/18/2021 [facility] 8-2 mg 03/14/2021 12:00:00 AM EDT film 56 PLACE 1-2 FILMS UNDER THE TONGUE EVERY DAY FOR ADDICTION AND NEEDED FOR PAIN MAXIMUM DAILY DOSE = 2 PLACE 1-2 FILMS UNDER THE TONGUE EVERY DAY FOR ADDICTION AND NEEDED FOR PAIN MAXIMUM DAILY DOSE = 2 SOLD: 03/18/2021 [facility] 24 HR Amphetamine aspartate 2.5 MG / Amp hetamine Sulfate 2.5 MG / Dextroamphetamine saccharate 2.5 MG / Dextroamphetamine Sulfate 2.5 MG Extended Release Oral Capsule 10 mg DEXTROAMPHETAMINE/AMPHETAMINE 03/14/2021 12:00:00 AM EDT capsule,extended release 24hr 28 TA KE ONE CAPSULE BY MOUTH EVERY DAY AT NOON MAXIMUM DAILY DOSE = 1 TAKE ONE CAPSULE BY MOUTH EVERY DAY AT N OON MAXIMUM DAILY DOSE = 1 SOLD: 03/18/2021 [facility] 24 HR Amphetamine aspartate 2.5 MG / Amp hetamine Sulfate 2.5 MG / Dextroamphetamine saccharate 2.5 MG / Dextroamphetamine Sulfate 2.5 MG Extended Release Oral Capsule 10 mg DEXTROAMPHETAMINE/AMPHETAMINE 02/15/2021 12:00:00 AM EDT capsule,extended release 24hr 28 TA KE 1 CAPSULE BY MOUTH AT NOON MAXIMUM DAILY DOSE = 1 TAKE 1 CAPSULE BY MOUTH AT NOON MAXIMUM DAILY DOSE = 1 SOLD: 02/15/2021 [facility] 24 HR Amphetamine aspartate 7.5 MG / Amp hetamine Sulfate 7.5 MG / Dextroamphetamine saccharate 7.5 MG / Dextroamphetamine Sulfate 7.5 MG Extended Release Oral Capsule 30 mg DEXTROAMPHETAMINE/AMPHETAMINE 02/14/2021 12:00:00 AM EDT capsule,extended release 24hr 28 TA KE ONE CAPSULE BY MOUTH EVERY MORNING MAXIMUM DAILY DOSE = 1 TAKE ONE CAPSULE BY MOUTH EVERY MORNING MAXIMUM DAILY DOSE = 1 SOLD: 02/15/2021 [facility] 8-2 mg 02/14/2021 12:00:00 AM EDT film 56 USE 1-2 FILMS BY MOUTH DAILY FOR ADDICTION AND NEEDED FOR PAIN MAXIMUM DAILY DOSE = 2 FILMS USE 1-2 FILMS BY MOUTH DAILY FOR ADDICTION AND NEEDED FOR PAIN MAXIMUM DAILY DOSE = 2 FILMS SOLD: 02/15/2021 [facility] 8-2 mg 01/12/2021 12:00:00 AM EDT film 56 TAKE 1-2 FILMS BY MOUTH DAILY FOR ADDICTION AND NEEDED FOR PAIN MAXIMUM DAILY DOSE = 2 FILMS TAKE 1-2 FILMS BY MOUTH DAILY FOR ADDICTION AND NEEDED FOR PAIN MAXIMUM DAILY DOSE = 2 FILMS SOLD: 01/14/2021 [facility] 24 HR Amphetamine aspartate 2.5 MG / Amp hetamine Sulfate 2.5 MG / Dextroamphetamine saccharate 2.5 MG / Dextroamphetamine Sulfate 2.5 MG Extended Release Oral Capsule 10 mg DEXTROAMPHETAMINE/AMPHETAMINE 01/12/2021 12:00:00 AM EDT capsule,extended release 24hr 28 TA KE 1 CAPSULE BY MOUTH AT NOON MAXIMUM DAILY DOSE = 1 CAPSULE TAKE 1 CAPSULE BY MOUTH AT NOON MAXIMUM DAILY DOSE = 1 CAPSULE SOLD: 01/14/2021 [facility] 24 HR Amphetamine aspartate 7.5 MG / Amp hetamine Sulfate 7.5 MG / Dextroamphetamine saccharate 7.5 MG / Dextroamphetamine Sulfate 7.5 MG Extended Release Oral Capsule 30 mg DEXTROAMPHETAMINE/AMPHETAMINE 01/12/2021 12:00:00 AM EDT capsule,extended release 24hr 28 TA KE ONE CAPSULE BY MOUTH EVERY MORNING MAXIMUM DAILY DOSE = 1 CAPSULE TAKE ONE CAPSULE BY MOUTH EVERY MORNING MAXIMUM DAILY DOSE = 1 CAPSULE SOLD: 01/14/2021 [facility] 8-2 mg 12/17/2020 12:00:00 AM EDT film 56 USE 1-2 FILMS BY MOUTH DAILY FOR ADDICTION AND NEEDED FOR PAIN MAXIMUM DAILY DOSE = 2 FILMS USE 1-2 FILMS BY MOUTH DAILY FOR ADDICTION AND NEEDED FOR PAIN MAXIMUM DAILY DOSE = 2 FILMS SOLD: 12/18/2020 [facility] 30 mg 12/17/2020 12:00:00 AM EDT capsule,extended releas e 24hr 28 TAKE ONE CAPSULE BY MOUTH EVERY MORNING MAXIMUM DAILY DOSE = 1 CAPSULE TAKE ONE CAPSULE BY MOUTH EVERY MORNING MAXIMUM DAILY DOSE = 1 CAPSULE SOLD: 12/18/2020 [facility] 10 mg 12/17/2020 12:00:00 AM EDT capsule,extended releas e 24hr 28 TAKE 1 CAPSULE BY MOUTH DAILY AT NOON MAXIMUM DAILY DOSE = 1 CAPSULE TAKE 1 CAPSULE BY MOUTH DAILY AT NOON MAXIMUM DAILY DOSE = 1 CAPSULE SOLD: 12/18/2020 [facility] 300 mg 11/28/2020 12:00:00 AM EDT capsule 20 TAKE ONE CAPSULE BY MOUTH EVERY 12 HOURS FOR 10 DAYS TAKE ONE CAPSULE BY MOUTH EVERY 12 HOURS FOR 10 DAYS S OLD: 11/28/2020 [facility] 10 mg 11/19/2020 12:00:00 AM EST capsule,extended releas e 24hr 23 TAKE ONE CAPSULE BY MOUTH EVERY DAY AT NOON MAXIMUM DAILY DOSE = 1 TAKE ONE CAPSULE BY MOUTH EVERY DAY AT NOON MAXIMUM DAILY DOSE = 1 SOLD: 11/19/2020 [facility] 30 mg 11/15/2020 12:00:00 AM EST capsule,extended releas e 24hr 28 TAKE ONE CAPSULE BY MOUTH EVERY MORNING MAXIMUM DAILY DOSE = 1 TAKE ONE CAPSULE BY MOUTH EVERY MORNING MAXIMUM DAILY DOSE = 1 SOLD: 11/15/2020 [facility] 10 mg 11/15/2020 12:00:00 AM EST capsule,extended releas e 24hr 5 TAKE ONE CAPSULE BY MOUTH EVERY DAY AT NOON MAXIMUM DAILY DOSE = 1 TAKE ONE CAPSULE BY MOUTH EVERY DAY AT NOON MAXIMUM DAILY DOSE = 1 SOLD: 11/15/2020 [facility] 8-2 mg 11/14/2020 12:00:00 AM EST film 56 PLACE ONE TO TWO FILM UNDER THE TONGUE EVERY DAY FOR ADDICTION AND NEEDED PAIN MAXIMUM DAILY DOSE = [address] ONE TO TWO FILM UNDER THE TONGUE EVERY DAY FOR ADDICTION AND NEEDED PAIN MAXIMUM DAILY DOSE = 2 FILMS SOLD: 11/14/2020 [facility] 100 mg 10/26/2020 12:00:00 AM EST capsule 20 TAKE ONE CAPSULE BY MOUTH TWICE A DAY MAXIMUM DAILY DOSE = 2 CAPSULES TAKE ONE CAPSULE BY MOUTH TWICE A DAY MAXIMUM DAILY DOSE = 2 CAPSULES SOLD: 10/26/2020 [facility] 30 mg 10/17/2020 12:00:00 AM EST capsule,extended releas e 24hr 28 TAKE ONE CAPSULE BY MOUTH EVERY MORNING MAXIMUM DAILY DOSE = ONE CAPSULE TAKE ONE CAPSULE BY MOUTH EVERY MORNING MAXIMUM DAILY DOSE = ONE CAPSULE SOLD: 10/18/2020 [facility] 8-2 mg 10/17/2020 12:00:00 AM EST film 56 PLACE ONE TO TWO FILMS UNDER THE TONGUE EVERY DAY FOR ADDICTION AND NEEDED FOR PAIN MAXIMUM DAILY DOSE = 2 PLACE ONE TO TWO FILMS UNDER THE TONGUE EVERY DAY FOR ADDICTION AND NEEDED FOR PAIN MAXIMUM DAILY DOSE = 2 SOLD: 10/18/2020 [facility] 10 mg 10/17/2020 12:00:00 AM EST capsule,extended releas e 24hr 28 ONE CAPSULE BY MOUTH AT NOON MAXIMUM DAILY DOSE = ONE CAPSULE ONE CAPSULE BY MOUTH AT NOON MAXIMUM DAILY DOSE = ONE CAPSULE SOLD: 10/18/2020 [facility] 150 mg 09/20/2020 12:00:00 AM EST tablet sustained-releas e 12 hr 28 TAKE ONE TABLET BY MOUTH EVERY DAY TAKE ONE TABLET BY MOUTH EVERY DAY SOLD: 12/10/2020 [facility] 150 mg 09/20/2020 12:00:00 AM EST tablet sustained-releas e 12 hr 28 TAKE ONE TABLET BY MOUTH EVERY DAY TAKE ONE TABLET BY MOUTH EVERY DAY SOLD: 02/15/2021 [facility] 150 mg 09/20/2020 12:00:00 AM EST tablet sustained-releas e 12 hr 28 TAKE ONE TABLET BY MOUTH EVERY DAY TAKE ONE TABLET BY MOUTH EVERY DAY SOLD: 10/18/2020 [facility] 150 mg 09/20/2020 12:00:00 AM EST tablet sustained-releas e 12 hr 28 TAKE ONE TABLET BY MOUTH EVERY DAY TAKE ONE TABLET BY MOUTH EVERY DAY SOLD: 01/10/2021 [facility] 10 mg 09/19/2020 12:00:00 AM EST capsule,extended releas e 24hr 28 TAKE ONE CAPSULE BY MOUTH EVERY DAY AT NOON MAXIMUM DAILY DOSE = 1 CAPSULE TAKE ONE CAPSULE BY MOUTH EVERY DAY AT NOON MAXIMUM DAILY DOSE = 1 CAPSULE SOLD: 09/19/2020 [facility] 30 mg 09/19/2020 12:00:00 AM EST capsule,extended releas e 24hr 28 TAKE ONE CAPSULE BY MOUTH EVERY MORNING MAXIMUM DAILY DOSE = 1 CAPSULE TAKE ONE CAPSULE BY MOUTH EVERY MORNING MAXIMUM DAILY DOSE = 1 CAPSULE SOLD: 09/19/2020 [facility] 8-2 mg 09/19/2020 12:00:00 AM EST film 56 PLACE ONE TO TWO FILMS UNDER THE TONGUE EVERY DAY FOR ADDICTION AND NEEDED FOR PAIN MAXIMUM DAILY DOSE = [address] ONE TO TWO FILMS UNDER THE TONGUE EVERY DAY FOR ADDICTION AND NEEDED FOR PAIN MAXIMUM DAILY DOSE = 2 FILMS SOLD: 09/19/2020 [facility] 100 mg 09/03/2020 12:00:00 AM EST capsule 20 TAKE ONE CAPSULE BY MOUTH TWICE A DAY MAXIMUM DAILY DOSE = 2 CAPSULES TAKE ONE CAPSULE BY MOUTH TWICE A DAY MAXIMUM DAILY DOSE = 2 CAPSULES SOLD: 09/05/2020 [facility] 10 mg 08/22/2020 12:00:00 AM EST capsule,extended releas e 24hr 28 TAKE ONE CAPSULE BY MOUTH EVERY DAY AT NOON MAXIMUM DAILY DOSE = 1 TABLET TAKE ONE CAPSULE BY MOUTH EVERY DAY AT NOON MAXIMUM DAILY DOSE = 1 TABLET SOLD: 08/22/2020 [facility] 30 mg 08/22/2020 12:00:00 AM EST capsule,extended releas e 24hr 28 TAKE ONE CAPSULE BY MOUTH EVERY MORNING MAXIMUM DAILY DOSE = 1 CAPSULE TAKE ONE CAPSULE BY MOUTH EVERY MORNING MAXIMUM DAILY DOSE = 1 CAPSULE SOLD: 08/22/2020 [facility] 8-2 mg 08/22/2020 12:00:00 AM EST film 56 PLACE ONE TO TWO FILMS UNDER THE TONGUE EVERY DAY FOR ADDICTION AND NEEDED FOR PAIN MAXIMUM DAILY DOSE = [address] ONE TO TWO FILMS UNDER THE TONGUE EVERY DAY FOR ADDICTION AND NEEDED FOR PAIN MAXIMUM DAILY DOSE = 2 FILMS SOLD: 08/22/2020 [facility] 0.3 % 08/16/2020 12:00:00 AM EST drops 5 APPLY 1 DROP IN THE LEFT EYE EVERY 2 HOURS DIRECTED ALTERNATE WITH POLYTRIM APPLY 1 DROP IN THE LEFT EYE EVERY 2 HOURS DIRECTED ALTERNATE WITH POLYTRIM SOLD: 08/16/2020 [facility] 30 mg 07/24/2020 12:00:00 AM EST capsule,extended releas e 24hr 28 TAKE ONE CAPSULE BY MOUTH EVERY MORNING MAXIMUM DAILY DOSE = 1 CAPSULE TAKE ONE CAPSULE BY MOUTH EVERY MORNING MAXIMUM DAILY DOSE = 1 CAPSULE SOLD: 07/24/2020 [facility] 10 mg 07/18/2020 12:00:00 AM EST capsule,extended releas e 24hr 28 TAKE ONE CAPSULE BY MOUTH EVERY DAY AT NOON MAXIMUM DAILY DOSE = 1 CAPSULE TAKE ONE CAPSULE BY MOUTH EVERY DAY AT NOON MAXIMUM DAILY DOSE = 1 CAPSULE SOLD: 07/23/2020 [facility] 8-2 mg 07/18/2020 12:00:00 AM EST film 56 PLACE 1-2 FILMS UNDER THE TONGUE ONCE DAILY FOR ADDICTION AND NEEDED FOR PAIN MAXIMUM DAILY DOSE = 2 PLACE 1-2 FILMS UNDER THE TONGUE ONCE DAILY FOR ADDICTION AND NEEDED FOR PAIN MAXIMUM DAILY DOSE = 2 SOLD: 07/23/[address] [facility] 10 mg 06/20/2020 12:00:00 AM EDT capsule,extended releas e 24hr 28 ONE CAPSULE BY MOUTH AY NOON MAXIMUM DAILY DOSE = ONE CAPSULE ONE CAPSULE BY MOUTH AY NOON MAXIMUM DAILY DOSE = ONE CAPSULE SOLD: 06/22/2020 [facility] 8-2 mg 06/20/2020 12:00:00 AM EDT film 56 PLACE ONE TO TWO FILMS UNDER THE TONGUE EVERY DAY FOR ADDICTION AND NEEDED FOR PAIN MAXIMUM DAILY DOSE = [address] ONE TO TWO FILMS UNDER THE TONGUE EVERY DAY FOR ADDICTION AND NEEDED FOR PAIN MAXIMUM DAILY DOSE = 2 FILMS SOLD: 06/22/2020 [facility] 30 mg 06/20/2020 12:00:00 AM EDT capsule,extended releas e 24hr 28 TAKE ONE CAPSULE BY MOUTH EVERY MORNING MAXIMUM DAILY DOSE = ONE CAPSULE TAKE ONE CAPSULE BY MOUTH EVERY MORNING MAXIMUM DAILY DOSE = ONE CAPSULE SOLD: 06/22/2020 [facility] 8-2 mg 05/26/2020 12:00:00 AM EDT film 56 PLACE 1 TO 2 FILMS UNDER THE TONGUE ONCE DAILY FOR ADDICTION AND NEEDED FOR PAIN * MAXIMUM DAILY DOSE = 2 PLACE 1 TO 2 FILMS UNDER THE TONGUE ONCE DAILY FOR ADDICTION AND NEEDED FOR PAIN * MAXIMUM DAILY DOSE = 2 SOLD: 05/27/2020 [facility] 10 mg 05/25/2020 12:00:00 AM EDT capsule,extended releas e 24hr 28 TAKE 1 TABLET BY MOUTH AT NOON MAXIMUM DAILY DOSE = 1 TAKE 1 TABLET BY MOUTH AT NOON MAXIMUM DAILY DOSE = 1 SOLD: 05/27/2020 [facility] 30 mg 05/25/2020 12:00:00 AM EDT capsule,extended releas e 24hr 28 TAKE ONE CAPSULE BY MOUTH EVERY MORNING MAXIMUM DAILY DOSE = 1 TAKE ONE CAPSULE BY MOUTH EVERY MORNING MAXIMUM DAILY DOSE = 1 SOLD: 05/27/2020 [facility] 300 mg 05/23/2020 12:00:00 AM EDT capsule 21 TAKE ONE CAPSULE BY MOUTH THREE TIMES A DAY FOR 7 DAYS TAKE ONE CAPSULE BY MOUTH THREE TIMES A DAY FOR 7 DAYS SOLD: 05/27/2020 [facility] 1 % 03/08/2020 12:00:00 AM EDT drops,suspension 5 INSTILL ONE DROP INTO BOTH EYES FOUR TIMES A DAY DIRECTED INSTILL ONE DROP INTO BOTH EYES FOUR EDDIE ES A DAY DIRECTED SOLD: 05/16/2020 [facility] 150 mg 07/15/2019 12:00:00 AM EDT tablet sustained-releas e 12 hr 28 TAKE ONE TABLET BY MOUTH EVERY DAY TAKE ONE TABLET BY MOUTH EVERY DAY SOLD: 06/22/2020 [facility] 150 mg 07/15/2019 12:00:00 AM EDT tablet sustained-releas e 12 hr 28 TAKE ONE TABLET BY MOUTH EVERY DAY TAKE ONE TABLET BY MOUTH EVERY DAY SOLD: 05/16/2020 [facility] Insurance Providers Payer name Policy type / Coverage type Policy ID Covered libertarian ID Covered libertarian's relationship to styles Policy Stylse Plan Information COMMERCIAL GENERIC [id number] Britni 1 [id number] [facility] [id number] SP [id number] [facility] COMM[facility]ITY PL[facility] [id number] SP [id number] [facility] Preferred Provider Org. [id number] Self [id number] [facility] Commercial Insurance Co. [id number] Self [id number] [facility]) O [id number] S [id number] [facility] DEPT [facility] [id number] SP [facility] [id number] ANSI-Medicaid [id number] [facility] [id number] SP [id number] [facility] Health Maintenance Organization (HMO) [id number] Self MEDICAID -O/P EMERGENCY ROOM [id number] [facility] [place] P [id number] S [id number] P UNAVAILABLE UNAVAILA BLE PMA MANAGEMENT ED [facility] P [id number] S [id number] PMA MANAGEMENT ED [facility] SK [id number] SP [id number] PMA MANAGEMENT ED [facility] [id number] SP [id number] OTHER [employer] [id number] SP [id number] [facility] [employer] NOONAN PLAN [id number] SP [id number] [facility]) P [id number] S [id number] [employer]CELL[employer] BCBS S [id number] S [id number] BLUE CROSS BLUE SHIELD-O/P [id number] 18 [id number] BLUE CROSS BLUE SHIELD-O/P [id number] 18 [id number] O BLUE [id number] SP [id number] [place] [id number] SP [id number] [employer] COMMUNITY PLAN [facility] [id number] SP [id number] UNHC AMERICHOICE XIX O [id number] 18 [id number] [place]ED[place] [id number] SP [id number] MEDICAID [id number] SP [id number] Problems, Conditions, and Diagnoses Code Display Name Description Problem Type Effective Dates Data Source(s) E56793 Latex allergy status Latex allergy status Diagnosis 07/06/2021 02:41:00 AM EDT [facility] [id number] Personal history of nicotine dependence Personal history of nicotine dependence Diagnosis 07/06/2021 02:41:00 AM EDT [facility] Z5320 Procedure and treatment not carried out because of patient's decision for unspecified reasons Procedure and treatment not carried out because of patient's decision for unspecified reasons Diagnosis 07/06/2021 02:41:00 AM EDT [facility] [id number] Unspecified asthma, uncomplicated Unspecified as thma, uncomplicated Diagnosis 07/06/2021 02:41:00 AM EDT [facility] [id number] Cellulitis of left lower limb Cellulitis of left lower limb Diagnosis 07/06/2021 02:41:00 AM EDT [facility] [id number] Pain in left lower leg Pain in left lower leg Diagnosi s 07/06/2021 02:41:00 AM EDT [facility] Surgeries/Procedures No Information Results ID Date Data Source [id number] 07/06/2021 02:41:00 AM EDT [facility] 1 OrderSheet [facility] Emergency Department [address] [place] [address] Phone #: [phone] 07/06/2021 02:40 Patient: BRAD MEEK Sex: F : 1985 Age: 36yWEIGHT:72.5 kg (S) HEIGHT:64 inches (S) BMI:27.5ALLERGIES: Doxycycline, Latex, Penicillins, Sulfa AntibioticsCHIEF COMPLAINT: pain, swellingDIAGNOSIS: Cellulitis of skinLAB ORDERSOrder Description Priority Entered Acknowledged InitialedCBC w Diff STAT 03:12 07/06/2021 Ack'd: 04:08 Francoise Peterson R.N., Jack ; Cancelled: Patient Refusal 06:07 Francoise Peterson R.N.Urinalysis (Clean STAT 03:12 07/06/2021 Ack'd: 04:08 06:07 Nicholas,Catch) Fady Palma ; Francoise Peterson R.N., R.N.Beta-HCG, Qual STAT 03:12 07/06/2021 Ack'd: 04:08 06:07 Nicholas,Urine Fady Palma ; Francoise Peterson R.N., R.N.CRP STAT 03:12 07/06/2021 Ack'd: 04:08 06:07 Louie Peterson Jack ; Francoise Peterson R.N. R.Lee Ann.CMP STAT 03:12 07/06/2021 Ack'd: 04:08 06:07 Louie Peterson Jack ; Francoise Peterson R.N. Francoise R.N.Blood Culture STAT 03:12 07/06/2021 Ack'd: 04:08 06:07 Nicholas,q10m X2 (Sched Fady Palma ; Francoise Peterson R.N. Francoise R.NTal03:12 07/06/2021)Blood Culture STAT 03:12 07/06/2021 Ack'd: 04:08 Francoise Peterson R.N.q10m X2 (Sched Fady Palma ; Initialed: 06:07 Francoise Peterson R.N.03:22 07/06/2021) Cancelled: Patient Refusal 06:08 Francoise Peterson R.N.DIAGNOSTIC STUDY ORDERSOrder Description Priority Entered Acknowledged InitialedMEDICATION/IV/DRIP/FLUID ORDERSOrder Description Priority Entered Acknowledged InitialedInirmaz (Adult) 03:14 07/06/2021 04:08 NicholasIVPB 1000 mg with Fady Palma ; Francoise BurgosSaline 50 ml spike 2 OrderSheet [facility] Emergency Department [address] [place] [address] Phone #: ext- [phone] 07/06/2021 02:40 Patient: BRAD MEEK Sex: F : 1985 Age: 36ybag (NOW x1)GENERAL ORDERSOrder Description Priority Entered Acknowledged Initialed[Electronically signed by Francoise Peterson R.N. (06:09 07/06/2021)][Electronically signed by Fady Palma (07:46 07/07/2021)][Electronically locked by Francoise Peterson R.N. (06:09 07/06/2021)] Name Value Range Interpretation Code Description Data Alia rce(s) Supporting Document(s) ID Date Data Source [id number] 07/06/2021 02:41:00 AM EDT [facility] 1 Medication Reconciliation Report [facility] Emergency Department [address] [place] [address] Phone #: ext- [phone] 07/06/2021 02:40 Patient: BRAD MEEK Sex: F : 1985 Age: 36yWeight: 72.5 kgHeight/Length: 64 in.BMI: 27.5ALLERGIES: Doxycycline, Latex, Penicillins, Sulfa AntibioticsThe patient's Home Medications are listed below:CONTINUE TAKING THE FOLLOWING MEDICATIONS: Lyrica Oral Motrin IB Oral Suboxone Sublingual Tylenol OralThe source(s) of the original Home Medication information:Not obtained.The following Medications were given to the patient in the Emergency Department:INVANZ (ADULT) [IVPB] IVPB bolus 0, then 1 gm 50 mL/hr, administered: 04:08 07/06/2021The following Medications were prescribed to the patient:None. Name Value Range Interpretation Code Description Data Alia rce(s) Supporting Document(s) ID Date Data Source [id number] 07/06/2021 02:41:00 AM EDT [facility] 1 Medication Administration Record [facility] Emergency Department [address] [place] [address] Phone #: ext- [phone] 07/06/2021 02:40 Patient: BRAD MEEK Sex: F : 1985 Age: 36yWeight: 72.5 kgHeight/Length: 64 inBMI: 27.5ALLERGIES: Latex, Sulfa Antibiotics, Penicillins, Doxycycline Date/Time Medication Administered Medication OrderedStart INVANZ (ADULT) [IVPB] (ERTAPENEM Invanz (Adult) IVPB 1000 mg with04:08 07/06/2021 SODIUM) Saline 50 ml spike bag (NOW x1)Francoise Peterson R.N. Dose: 1 gm IVPB---- Rate: 50 mL/hr over 1 hour(s)Stop Dispensed: 50 mL bag05:01 07/06/2021 Site: #1 left handFrancoise Peterson R.N. Name Value Range Interpretation Code Description Data Alia rce(s) Supporting Document(s) ID Date Data Source [id number] 07/06/2021 02:41:00 AM EDT [facility] 1 General Instructions [facility] Emergency Department [address] [place] [address] Phone #: ext- [phone] 07/06/2021 02:40 Patient: BRAD MEEK Sex: F : 1985 Age: 36yCellulitis of the left lower leg.INSTRUCTIONSWarnings: Further evaluation is necessary.INFECTION: Watch for signs of infection (increasing heat and redness, pus-like drainage, swelling, orincreased pain). Return or see your doctor if these signs occur.GENERAL WARNINGS: Return or contact your physician immediately if your condition worsens orchanges unexpectedly, if not improving as expected, or if other problems arise.Your Current Medications: Your current home medications have been reviewed.CONTINUE TAKING THE FOLLOWING MEDICATIONS:Lyrica Oral.Motrin IB Oral.Suboxone Sublingual.Tylenol Oral.Follow-up:Return to the emergency department in two if not better. Follow up with your healthcare provider.Understanding of the discharge instructions verbalized by patient.AMA warnings: Oriented to person, place, and time. Gives appropriate answers.Clinical Impression: the patient has the capacity to make decisions regarding the medical care offered.Relevant issues reviewed and discussed with the patient. The suspected diagnosis, based upon theinitiated medical screening exam, has been discussed with the patient. Acknowledges understanding ofthe reasons for recommendations regarding medical treatment. The recommended medical care beingrefused is Admission for IV antibiotics and has been discussed with the patient. The risks of refusingrecommended care that were disclosed and acknowledged are paraplegia and loss of limb; the risks ofrefusing recommended care that were disclosed are . Discharge instructions were provided.REFUSAL OF CARE STATEMENT (patient to review and sign in discharge instructions):I have read this paragraph. I understand that a doctor at [facility] wants to give me certain medicalcare. The doctor explained that care to me, and I understand what that care is. The doctor also explainedto me what could happen to me if I leave here without having that care, and I understand what he said. ADDITIONAL INFORMATION 2 General Instructions [facility] Emergency Department [address] [place] [address] Phone #: ext- [phone] 07/06/2021 02:40 Patient: BRAD MEEK Sex: F : 1985 Age: 36yCellulitisCellulitis is an infection of the deep layers of skin. A break in the skin, such as a cut or scratch, can letbacteria under the skin. If the bacteria get to deep layers of the skin, it can be serious. If not treated,cellulitis can get into the bloodstream and lymph nodes. The infection can then spread throughout thebody. This causes serious illness.Cellulitis causes the affected skin to become red, swollen, warm, and sore. The reddened areas havea visible border. An open sore may leak fluid (pus). You may have a fever, chills, and pain.Cellulitis is treated with antibiotics taken for 7 to 10 days. An open sore may be cleaned and coveredwith cool wet gauze. Symptoms should get better 1 to 2 days after treatment is started. Make sure totake all the antibiotics for the full number of days until they are gone. Keep taking the medicine even ifyour symptoms go away.Home careFollow these tips: Limit the use of the part of your body with cellulitis. If the infection is on your leg, keep your leg raised while sitting. This helps reduce swelling. Take all of the antibiotic medicine exactly as directed until it is gone. Don't miss any doses, especially during the first 7 days. Don't stop taking the medicine when your symptoms get better. Keep the affected area clean and dry. Wash your hands with soap and clean, running water before and after touching your skin. Anyone else who touches your skin should also wash his or her hands. Don't share towels.Follow-up careFollow up with your healthcare provider, or as advised. If your infection doesn't go away on the firstantibiotic, your healthcare provider will prescribe a different one.When to seek medical adviceCall your healthcare provider right away if any of these occur: Red areas that spread Swelling or pain that gets worse Fluid leaking from the skin (pus) 3 General Instructions [facility] Emergency Department [address] [place] [address] Phone #: ext- [phone] 07/06/2021 02:40 Patient: BRAD MEEK Sex: F : 1985 Age: 36y Fever higher of 100.4 F (38.0 C) or higher after 2 days on antibiotics [employer]. [address] [place] [address]. All rights reserved. This information is not intended as asubstitute for professional medical care. Always follow your healthcare professional's instructions.Staph Infection (MRSA)Staph is the short name for the common bacteria called staphylococcus aureus. Staph bacteria areoften present on the skin without causing an infection. If it gets inside the skin, an infection occurs.This causes redness, tenderness, swelling, and sometimes fluid drainage.MRSA stands for methicillin-resistant staph aureus. Unlike a common staph infection, MRSA bacteriaare resistant to the usual antibiotics and harder to treat. Also, MRSA can cause more troublesomeand recurrent skin infections than common staph bacteria. It is also more likely to spread throughoutthe body and cause a life-threatening illness, though this is unusual.MRSA is spread to others by direct physical contact with the bacteria. MRSA can also be spread fromitems contaminated by a person who has the bacteria, such as bandages, towels, bed sheets, hardsurfaces, or sports equipment. It is generally not spread through the air. But you can get it if youcome in direct contact with the fluid from someone's cough or sneeze. Once you have a MRSA skininfection, you are at risk of having it again.If your healthcare provider thinks you have a MRSA infection, he or she may take a wound culture toconfirm the diagnosis. If you have an abscess, your provider may drain it. He or she may prescribeone or more antibiotics that work against MRSA and may recommend that you clean your skin, theskin of your closest contacts, and things that you touch or wear to get rid of chronic MRSA infection atthese sites.Home care Take any antibiotics prescribed exactly as directed. Don't stop taking them until they are gone or your healthcare provider tells you to stop, even if you feel better. If your healthcare provider prescribed disinfecting washes (such as chlorhexidine 4% soap) or antibiotic ointment, use it as directed. Cover your wounds with clean, dry bandages. Change dressings as they become soiled. Wash your hands well each time you change the bandage or touch the wound. Remove any artificial nails and nail iranian.Treating household members and your environmentIf you have been diagnosed with possible MRSA infection, those living with you are at higher risk ofcarrying the bacteria on their skin or in their nose, even if there is no sign of infection. Bacteria must 4 General Instructions [facility] Emergency Department [address] [place] [address] Phone #: ext- [phone] 07/06/2021 02:40 Patient: BRAD MEEK Sex: F : 1985 Age: 36ybe removed from the skin of all household members at the same time so it is not passed back andforth. Advise them to remove the bacteria as follows: Househ old member should wash with chlorhexidine 4% soap as well. If anyone in the household has a skin infection, it must be treated by a healthcare provider. Clean counter tops, other hard surfaces that you contact, and children's toys. Don't share personal items such as toothbrush and razors.Preventing spread of infection Wash your hands often with plain soap and warm water. Be sure to clean under the fingernails, between the fingers, and the wrists. Dry hands with a single use towel (for example a paper towel). If soap and water are not available, you can use an alcohol-based hand sports journalist. Rub the sports journalist over the entire surface of the hands, fingers, and wrists until dry. Don't share personal items such as towels, washcloths, razors, clothing, or uniforms. Wash soiled sheets, towels or clothes in hot water with laundry detergent. Use an automatic clothes dryer set on high to kill any remaining bacteria. If you use a gym, wipe down equipment with an alcohol-based sports journalist before and after each use. Wipe the handgrips as well. If you participate in sports, shower with plain soap after every activity. Use a clean towel for each shower.Follow-up careFollow-up with your healthcare provider, or as advised. If a wound culture was taken, call as directedfor the results. You will be told about any changes to your treatment.If you are diagnosed with MRSA, te ll medical personnel in the future that you have been treated forthis type of infection.When to seek medical adviceCall your healthcare provider if any of the following occur: Increasing redness, swelling or pain Red streaks in the skin around the wound Weakness or dizziness New appearance of pus or drainage from the wound 5 General Instructions [facility] Emergency Department [address] [place] [address] Phone #: ext- [phone] 07/06/2021 02:40 Patient: BRAD MEEK Sex: F : 1985 Age: 36y New fever over 100.4 F (38.0 C), or as directed by the healthcare provider [phone] [employer]. [address] [place] [address]. All rights reserved. This information is not intended as asubstitute for professional medical care. Always follow your healthcare professional's instructions. You have been given the following additional information: Cellulitis Staph Skin Infection, Possible MR SA(Electronically signed by Fady Palma 07/07/2021 07:46) Name Value Range Interpretation Code Description Data Alia rce(s) Supporting Document(s) ID Date Data Source [id number] 07/06/2021 02:41:00 AM EDT [facility] 1 Clinical Report - Nurses [facility] Emergency Department [address] [place] [address] Phone #: ext- [phone] 07/06/2021 02:40 Patient: BRAD MEEK Sex: F : 1985 Age: 36yTRIAGEArrived by private vehicle. Historian: patient. Accompanied by friend. ( left lower leg cellulitis pt.currently being treated with clindamycin was seen at urgent care on thu for ).Acuity: LEVEL 3.Chief Complaint: LEFT LOWER EXTREMITY PAIN, SWELLING and REDNESS.No injury occurred. Onset. (3 days ago). She has had trouble walking.Treatment ROOM SERVICE WAITER:None. --02:58 07/06/21 Luann Monae R.N.02:50 07/06/21. BP: 136/78. MAP: 97. HR: 100. RR: 17. O2 saturation: 97%. Temp: 98.1 F (oral). Painlevel now: 04/23. --02:58 07/06/21 Luann Monae R.N.Weight: 72.5 kg stated. Height/Length: 64 inches Per Patient. BMI: 27.5. --02:57 07/06/21 Luann Monae R.N.Medication sSuboxone Sublingual. --02:54 07/06/21 Luann Monae R.N. Lyrica Oral. --02:54 07/06/21 Luann Monae R.N. Motrin IB Oral. --02:54 07/06/21 Luann Monae R.N. Tylenol Oral. --02:54 07/06/21 Luann Monae R.N.AllergiesLatex. --02:54 07/06/21 Luann Monae R.N.Sulfa Antibiotics. --02:54 07/06/21 Luann Monae R.N.Doxycycline. --03:23 07/06/21 Francoise Peterson R.N.Penicillins. --03:23 07/06/21 Francoies Peterson R.N.The following entry was struck by Francoise Peterson R.N., 03:23 (07/06/21) Reason - other. PNC. --02:54 07/06/21 Luann Monae R.N.The following entry was struck by Francoise Peterson R.N., 03:23 (07/06/21) Reason - other. Doxicicline. --02:54 07/06/21 Luann Monae R.N. .PROBLEMS:Abrasion(s).Pedal Edema. --02:55 07/06/21 Luann Monae R.N. 2 Clinical Report - Nurses [facility] Emergency Department [address] [place] [address] Phone #: ext- [phone] 07/06/2021 02:40 Patient: BRAD MEEK Sex: F : 1985 Age: 36y ADDITIONAL SURGERIES: Cholecystectomy. Left ovary with tube removed. --02:55 07/06/21 Luann Monae R.N. History SOCIAL HX: Current every day smoker (electronic cigarrettes). No alcohol use or drug use. She was offered HIV testing but declined and hepatitis C testing but declined. She has not traveled outside the [place] Infectious disease exposure: No infectious disease exposure. The patient was exposed to Coronavirus. SELF HARM ASSESSMENT: Self harm assessment was performed. The patient answered "no" to the question(s) "Have you recently felt down, depressed, or hopeless?" and "Do you have thoughts of harming or killing yourself?". ABUSE ASSESSMENT: No report of abuse. NUTRITIONAL RISK ASSESSMENT: The nutritional risk assessment revealed no deficiencies. FUNCTIONAL ASSESSMENT: Functional assessment: no impairments noted. LEARNING NEEDS ASSESSMENT: The learning needs assessment revealed no barriers. FALL RISK ASSESSMENT: Fall risk assessment completed. No risk factors identified. SKIN INTEGRITY ASSESSMENT: Skin integrity risk assessment completed. No skin integrity risk identified. --02:58 07/06/21 Luann Monae R.N. FAMILY HX: Father: Diabetes Mellitus. --03:18 07/06/21 Fady Palma.PHYSICAL ASSESSMENTEXTREMITIES: Left leg. Left ankle. Left foot: tenderness and swelling.SKIN: Skin is warm and dry. --02:58 07/06/21 Luann Monae R.N.NURSING PROGRESS NOTES( pt. actively crying while this RN attempted IV pt. has bruising to left AC area pt. told this grant writer its fromusing IV drugs but not recently. pt. not sure if she wants and IV made aware). --03:53 07/06/21 Luann Monae R.N. 04:08 07/06/2021 Site #1 started via IV in the left hand with an 22g angiocath, with aseptic technique; three attempts. --04:08 07/06/21 Francoise Peterson R.N. 04:08 07/06/2021 Started 1 gm of INVANZ (ADULT) (Ertapenem Sodium) IVPB in bag #1 50 mL; at 50 mL/hr over 1 hour(s) via site #1. via IV pump. Allergies verified and confirmed 5 rights. IV patency established. IV site checked: no pain, redness, or swelling. IV flushed thoroughly pre- and post- medication 3 Clinical Report - Nurses [facility] Emergency Department [address] [place] [address] Phone #: ext- [phone] 07/06/2021 02:40 Patient: BRAD MEEK Sex: F : 1985 Age: 36y administration. Information reviewed with patient. Verbalizes understanding. --04:08 07/06/21 Francoise Peterson R.N. ( Pt difficult stick, IV obtained but unable to get blood work. Lab notified to come and draw pt for blood work. MD Palma made aware.). --04:09 07/06/21 Francoise Peterson R.N. ( Lab unable to draw blood work on pt. MD Palma aware.). --04:40 07/06/21 Francoise Peterson R.N. 05:01 07/06/2021 INVANZ (ADULT) IVPB via IV site #1 Discontinued: bag #1 completed. Total amount infused: 50 mL. IV patency established. IV site checked: no pain, redness, or swelling. IV flushed thoroughly. --05:01 07/06/21 Francoise Peterson R.N. ( Another RN attempted for blood work. Pt refusing any more attempts. MD Palma aware.). --05:23 07/06/21 Francoise Peterson R.N.DISPOSITION / DISCHARGE 06:08 07/06/2021 Site #1 removed upon discharge. Bandage applied. --06:08 07/06/21 Francoise Peterson R.N. The patient left the Emergency Department against medical advice; patient was accompanied by spouse. The patient appears to be alert, oriented x4, coherent, in no acute distress and uncooperative. The patient stated is leaving (Pt refusing blood work and further tx and does not want to stay). Notified the ED physician of patient departure. Prior to leaving, she was advised to stay for completion of treatment and return if needed. She was informed of the risks of leaving and verbalized understanding of these risks. Patient refused to sign form prior to leaving. She left the Emergency Department ambulatory and via private vehicle. --06:09 07/06/21 Francoise Peterson R.N. 06:08 07/06/21. BP: unable to obtain. HR: unable to obtain. RR: unable to obtain. O2 saturation: unable to obtain. Temp: unable to obtain. Pain level now unable to obtain. --06:09 07/06/21 Francoise Peterson R.N.Locked/Released at 07/06/2021 06:09 by Francoise Peterson R.N. Name Value Range Interpretation Code Description Data Alia rce(s) Supporting Document(s) ID Date Data Source [id number] 07/06/2021 02:41:00 AM EDT [facility] 1 Clinical Report - Physicians/Mid Levels [facility] Emergency Department [address] [place] [address] Phone #: ext- [phone] 07/06/2021 02:40 Patient: BRAD MEEK Sex: F : 1985 Age: 36y Time Seen: 03:05 07/06/2021. Arrived- By private vehicle. Historian- patient. Disposition decision: 06:01 07/06/2021.HISTORY OF PRESENT ILLNESS Chief Complaint: LOWER EXTREMITY PAIN and SWELLING. Severity is described as being severe. The quality is noted to be "pain". No radiation. This started last night and is still present. It has been constant. Modifying factors- worsened by movement. Symptoms located in the area of the left leg. The patient has had redness and swelling. No difficulty walking. No sensory loss or motor loss. ( Started as a pimple to left lower leg at calf a week ago. there was drainage almost a week ago. Yesterday the leg got red and swollen. tested positive for COVID days ago. admits to using methampethamine). Patient denies an injury. Similar symptoms previously. None. Recent medical care: The patient was seen recently in a clinic. ( Placed on Clindamycin 3 days ago).REVIEW OF SYSTEMSThe patient has had a cough and cough and skin rash. No chest pain, difficulty breathing, fever orenlarged lymph nodes. No neck pain or pain, back pain, headache or abdominal pain. No vomiting,diarrhea, difficulty with urination or urination or fever. No difficulty breathing, joint pain or headache. Allother systems reviewed and are negative.PAST HISTORYSee nurses notes. No history of chronic back pain, DVT or diabetes mellitus. Problems: Asthma. Additional Surgeries: Cholecystectomy. Left ovary with tube removed. Me dications: Tylenol Oral. Motrin IB Oral. Lyrica Oral. Suboxone Sublingual. Allergies: Doxicicline. Latex. 2 Clinical Report - Physicians/Mid Levels [facility] Emergency Department [address] [place] [address] Phone #: ext- [phone] 07/06/2021 02:40 [id number] Sex[facility] F : 1985 Age: 36y PNC. Sulfa Antibiotics.SOCIAL HISTORYFormer smoker. No alcohol use.FAMILY HISTORYFather: Diabetes Mellitus.ADDITIONAL NOTESThe nursing notes have been reviewed.PHYSICAL EXAMVital Signs: 07/06/2021 02:50 BP: 136/78. MAP: 97. HR: 100. RR: 17. O2 saturation: 97%. Temp: 98.1 F.Pain level now: 8/10.Appearance: Alert. Oriented X3. Patient in moderate distress.Eyes: Pupils equal, round and reactive to light. Eyes normal inspection.ENT: Nose normal. Pharynx normal.Neck: Normal inspection. Neck supple.CVS: Normal heart rate and rhythm. Heart sounds normal. No cardiac murmur.Respiratory: No respiratory distress. Breath sounds normal.Abdomen: Soft and nontender.Back: Normal inspection. No tenderness.Skin: No cyanosis. Skin warm and dry. (small 1 cm scab over proximal lateral calf on left. sclerosed veinin right antecubital fossa).Extremities: Left leg: mild erythema and moderate tenderness and swelling. Neurovascular intact distally.No ecchymosis. Lower extremities exhibit normal ROM. Signs of infection present in the left leg. Calftenderness. (edema extends into ankle, sparing foot). Extremities otherwise negative.Neuro, Vascular and Tendons: No pulse deficit present. Lower extremity capillary refill not prolonged.Gait: No limping gait. She was able to bear weight.Neuro: Oriented X 3. No motor deficit. No sensory deficit.PROGRESS AND PROCEDURESCourse of Care: 03:21 07/06/21. Cellulitis for over 24 hours on 3 days of clindamycin. She denies anytrauma to the leg. Patient also at risk for DVT. 06:04 07/06/21. Multiple attempts were made to obtain blood work and IV access. Only received on dose of Invanz. Patient repeatedly stated she does not want to be admitted. Risk of DVT, Cellulitis, sepsis, and loss of limb explained to the patient. Patient/family counseled.CLINICAL IMPRESSION Cellulitis of the left lower leg. 3 Clinical Report - Physicians/Mid Levels [facility] Emergency Department [address] [place] [address] Phone #: [phone]- [phone] 07/06/2021 02:40 Patient: BRAD MEEK Sex: F : 1985 Age: 36yINSTRUCTIONS Warnings: Further evaluation is necessary. INFECTION: Watch for signs of infection (increasing heat and redness, pus-like drainage, swelling, or increased pain). Return or see your doctor if these signs occur. GENERAL WARNINGS: Return or contact your physician immediately if your condition worsens or changes unexpectedly, if not improving as expected, or if other problems arise. Your Current Medications: Your current home medications have been reviewed. CONTINUE TAKING THE FOLLOWING MEDICATIONS: Lyrica Oral. Motrin IB Oral. Suboxone Sublingual. Tylenol Oral. Follow-up: Return to the emergency department in two if not better. Follow up with your healthcare provider. Understanding of the discharge instructions verbalized by patient. AMA warnings: Oriented to person, place, and time. Gives appropriate answers. Clinical Impression: the patient has the capacity to make decisions regarding the medical care offered. Relevant issues reviewed and discussed with the patient. The suspected diagnosis, based upon the initiated medical screening exam, has been discussed with the patient. Acknowledges understanding of the reasons for recommendations regarding medical treatment. The recommended medical care being refused is Admission for IV antibiotics and has been discussed with the patient. The risks of refusing recommended care that were disclosed and acknowledged are paraplegia and loss of limb; the risks of refusing recommended care that were disclosed are . Discharge instructions were provided. REFUSAL OF CARE STATEMENT (patient to review and sign in discharge instructions): I have read this paragraph. I understand that a doctor at this [facility] wants to give me certain medical care. The doctor explained that care to me, and I understand what that care is. The doctor also explained to me what could happen to me if I leave here without having that care, and I understand what he said.(Electronically signed by Fady Palma 07/07/2021 07:46) 4Clinical Report - Physicians/Mid Levels [facility] Emergency Department [address] [place] [address] Phone #: ext- [phone] 07/06/2021 02:40 Patient: BRAD MEEK Sex: F : 1985 Age: 36y Name Value Range Interpretation Code Description Data Alia rce(s) Supporting Document(s) ID Date Data Source [id number] 07/02/2021 02:15:00 PM EDT [facility] Name Value Range Interpretation Code Description Data Alia rce(s) Supporting Document(s) SARS-CoV-2 RNA Resp Ql NUBIA+probe DETECTED [facility] This lab was ordered by HANNA pennington and reported by HANNA Jewell. ID Date Data Source [id number] 01/10/2021 08:15:00 PM EDT [facility] Name Value Range Interpretation Code Description Data Alia rce(s) Supporting Document(s) SARS-CoV-2 (COVID-19) N gene [Presence] in Respiratory specimen by NUBIA with probe detection NEGATIVE [facility] This lab was ordered by [facility] and reported by [employer]. ID Date Data Source [id number] 01/10/2021 12:00:00 AM EDT [facility] Name Value Range Interpretation Code Description Data Alia rce(s) Supporting Document(s) Carestart Rapid COVID Antigen Test Negative [facility] This lab was reported by [facility]. Procedure Social History No Information
[2021-07-10] MEDS ORDERED: CLINDAMYCIN 600 MG in IV 1 EA IV ONE (20:40)
[2021-07-10] MEDS ORDERED: NS 1,000 ML IV ONE (20:40)
--- OUTSIDE RECORDS SUMMARY | 2021-07-10 21:39 | CCD ---
Author Author [facility] Organization [facility] Address Unknown Phone Unavailable Care Team Providers Care Heel Cover Splitter Name Role Phone Maring, Eddie PA Unavailable [...] Unavailable Fady Palma MD Unavailable Unavailable Fady Plama MD Unavailable Unavailable Fady Palma MD Unavailable [...] T Lauren PA Unavailable Unavailable Feola, T Laruen PA Unavailable Unavailable Feola, T Lauren PA [...] Lauren PA Unavailable Unavailable Tomasz Castro Unavailable [phone] Tomasz Castro Unavailable [phone] Tomasz Castro Unavailable [phone] Tomasz Castro Unavailable [phone] Tomasz Castro Unavailable [phone] Tomasz Castro Unavailable [phone] NON, PHYSICIAN STAFF Unavailable Unavailable Re-disclosure Warning [...] is protected by Article 27-F of the [facility] Public Health law. If you continue you may have access to information: Regarding HIV / AIDS; Provided by facilities licensed or operated by the [facility] Office of Mental Health; or Provided by the [facility] Office for People With Developmental Disabilities. If such information is present, then the following [facility] mandated warning applies: This information has been [...] law may result in a fine or fpc sentence or both. A general authorization for the release of medical or other information is NOT sufficient authorization for further disc losure. Allergies and Adverse Reactions Type Description Substance Reaction Status Data Source(s ) Drug allergy NOVOCAINE NOVOCAINE SWELLING [facility] Propensity to adverse reactions LATEX LATEX RASH [facility] Drug allergy DOXYCYCLINE DOXYCYCLINE SWELLING [facility] Drug allergy CODEINE CODEINE [facility] Propensity to adverse reactions SULFA (sulfonamide) SULFA (sulfo namide) ANAPHYLAXIS [facility] Propensity to adverse reactions PCN (penicillin) PCN (penicillin) SWE LLING [facility] Family History Family Member Name Family Member Gender Family Member Status Date o f Status Description Data Source(s) Unknown Female Problem [facility] ([facility]) Unknown Female Problem MEDENT ([facility] ) Encounters Encounter Providers Location Date Indications Data Source(s ) Emergency Attender: Fady Palma MDConsultant: STAFF NON 07/06/2021 02:41:00 AM EDT - 07/06/2021 06:10:00 AM EDT [facility] Patient discharged. Outpatient Attender: Tomasz Patel tender: Gloria Henriquezender: Eddie ANTUNEZ 07/02/2021 12:59:35 PM EDT - 07/02/2021 01:55:05 PM EDT [facility] ([facility]) Outpatient Attender: Lauren ANTUNEZ 08:01:36 PM EDT - 01/10/2021 08:30:45 PM EDT [facility] ([facility] ) Medications Medication Brand [...] DAILY DOSE = ONE CAPSULE SOLD: 06/24/2021 [facility] 150 mg 05/16/2021 12:00:00 AM EDT tablet sustained-releas e 12 hr 28 TAKE ONE TABLET BY MOUTH EVERY DAY TAKE ONE TABLET BY MOUTH EVERY DAY SOLD: 05/17/2021 [facility] 24 HR Amphetamine aspartate 7.5 MG [...] MAXIMUM DAILY DOSE = 1 SOLD: 05/16/2021 [facility] 8-2 mg 05/10/2021 12:00:00 AM EDT film [address] ONE TO TWO FILMS UNDER THE TONGUE EVERY DAY FOR ADDICTION AND NEEDED FOR PAIN MAXIMUM DAILY DOSE = 2 PLACE ONE TO TWO FILMS UNDER THE TONGUE EVERY DAY FOR ADDICTION AND NEEDED FOR PAIN MAXIMUM DAILY DOSE = 2 SOLD: 05/16/2021 [facility] 24 HR Amphetamine aspartate 2.5 MG [...] MAXIMUM DAILY DOSE = 1 SOLD: 05/16/2021 [facility] 24 HR Amphetamine aspartate 7.5 MG [...] type / Coverage type Policy ID Covered democrat ID Covered democrat's relationship to styles Policy Styles Plan Information COMMERCIAL GENERIC [id number] Britni 1 [id number] [facility] [id number] SP [id number] [facility] PLAN [facility] [id number] SP [id number] [facility] Preferred Provider Org. [id number] Self [id number] [facility] Commercial Insurance Co. [id number] Self [id number] [facility]) O [id number] S [id number] [facility] DEPT [facility] [id number] SP [facility] [id number] ANSI-Medicaid [id number] [facility] [id number] SP [id number] [facility] Health Maintenance Organization (HMO) [id number] Self MEDICAID -O/P EMERGENCY ROOM [id number] [facility] [place] P [id number] S [id number] P UNAVAILABLE UNAVAILA BLE PMA MANAGEMENT ED [facility] P [id number] S [id number] PMA MANAGEMENT ED [facility] SK [id number] SP [id number] PMA MANAGEMENT ED [facility] [id number] SP [id number] OTHER WORKERS COMPENSATION [id number] SP [id number] [employer] [id number] SP [id number] [facility]) P [id number] S [id number] [employer] S [id number] S [id number] BL[employer]OSS BLUE SHIELD-O/P [id number] 18 [id number] BLUE CROSS BLUE SHIELD-O/P [id number] O BLUE [id number] SP [id number] [employer] COMMUNITY PLAN MCDO [id number] SP [id number] [place] [id number] SP [id number] D [employer]HC AMERICHOICE XIX O [id number] 18 [id number] EMEDNY [id number] SP [id number] MEDICAID [id number] SP [id number] Problems, Conditions, and Diagnoses Code Display Name Description Problem Type Effective Dates Data Source(s) T97332 Latex allergy status Latex allergy status Diagnosis 07/06/2021 02:41:00 AM EDT [facility] [id number] Personal history of nicotine dependence Personal history of nicotine dependence Diagnosis 07/06/2021 02:41:00 AM EDT [facility] Z5320 Procedure and treatment not carried out because of patient's decision for unspecified reasons Procedure and treatment not carried out because of patient's decision for unspecified reasons Diagnosis 07/06/2021 02:41:00 AM EDT [facility] R70157 Unspecified asthma, uncomplicated Unspecified as thma, uncomplicated Diagnosis 07/06/2021 02:41:00 AM EDT [facility] [id number] Cellulitis of left lower limb Cellulitis of left lower limb Diagnosis 07/06/2021 02:41:00 AM EDT [facility] U72537 Pain in left lower leg Pain in left lower leg Diagnosi s 07/06/2021 02:41:00 AM EDT [facility] Surgeries/Procedures No Information Results ID Date Data Source [id number] 07/06/2021 02:41:00 AM EDT [facility] 1 OrderSheet [facility] Emergency Department [address] [place] [address] Phone #: [phone] 07/06/2021 02:40 Patient: BRAD MEEK Sex: F [...] Francoise BurgosSaline 50 ml spike 2 OrderSheet [facility] Emergency Department [address] [place] [address] Phone #: ext- [phone] 07/06/2021 02:40 Patient: BRAD MEEK Sex: F : 1985 Age: 36ybag (NOW x1)GENERAL ORDERSOrder Description Priority Entered Acknowledged Initialed[Electronically signed by Francoise Peterson R.N. (06:09 07/06/2021)][Electronically signed by Fady Palma (07:46 07/07/2021)][Electronically locked by Francoise Peterson R.N. (06:09 07/06/2021)] Name Value Range Interpretation Code Description Data Alia rce(s) Supporting Document(s) ID Date Data Source [id number] 07/06/2021 02:41:00 AM EDT [facility] 1 Medication Reconciliation Report [facility] Emergency Department [address] [place] [address] Phone #: ext- [phone] 07/06/2021 02:40 Patient: [...] rce(s) Supporting Document(s) ID Date Data Source [id number] 07/06/2021 02:41:00 AM EDT [facility] 1 Medication Administration Record [facility] Emergency Department [address] [place] [address] Phone #: ext- [phone] 07/06/2021 02:40 Patient: [...] rce(s) Supporting Document(s) ID Date Data Source [id number] 07/06/2021 02:41:00 AM EDT [facility] 1 General Instructions [facility] Emergency Department [address] [place] [address] Phone #: ext- [phone] 07/06/2021 02:40 Patient: [...] I understand that a doctor [facility] wants to give me certain medicalcare. The doctor explained that care to me, and I understand what that care is. The doctor also explainedto me what could happen to me if I leave here without having that care, and I understand what he said. ADDITIONAL INFORMATION 2 General Instructions [facility] Emergency Department [address] [place] [address] Phone #: ext- [phone] 07/06/2021 02:40 Patient: BRAD MEKE Sex: F : 1985 Age: 36yCellulitisCellulitis is [...] from the skin (pus) 3 General Instructions [facility] Emergency Department [address] [place] [address] Phone #: ext- [phone] 07/06/2021 02:40 Patient: BRAD MEEK Sex: F : 1985 Age: 36y Fever higher of 100.4 F (38.0 C) or higher after 2 days on antibiotics [email or web address]. [address] [place] [address]. All rights reserved. This information is not [...] wound. Remove any artificial nails and nail nigerian.Treating household members and your environmentIf you have been diagnosed with possible MRSA infection, those living with you are at higher risk ofcarrying the bacteria on their skin or in their nose, even if there is no sign of infection. Bacteria must 4 General Instructions [facility] Emergency Department [address] [place] [address] Phone #: ext- [phone] 07/06/2021 02:40 Patient: [...] available, you can use an alcohol-based hand network systems analyst. Rub the network systems analyst over the entire surface of the hands, fingers, and wrists until dry. Don't share personal items such as towels, washcloths, razors, clothing, or uniforms. Wash soiled sheets, towels or clothes in hot water with laundry detergent. Use an automatic clothes dryer set on high to kill any remaining bacteria. If you use a gym, wipe down equipment with an alcohol-based network systems analyst before and after each use. Wipe the [...] drainage from the wound 5 General Instructions [facility] Emergency Department [address] [place] [address] Phone #: ext- [phone] 07/06/2021 02:40 Patient: BRAD MEEK Sex: F : 1985 Age: 36y New fever over 100.4 F (38.0 C), or as directed by the healthcare provider [phone] [employer]. [address] [place] [address]. All rights reserved. This information is not intended as asubstitute for professional medical care. Always follow your healthcare professional's instructions. You have been given the following additional information: Cellulitis Staph Skin Infection, Possible MR SA(Electronically signed by Fady Palma 07/07/2021 07:46) Name Value Range Interpretation Code Description Data Alia rce(s) Supporting Document(s) ID Date Data Source [id number] 07/06/2021 02:41:00 AM EDT [facility] 1 Clinical Report - Nurses [facility] Emergency Department [address] [place] [address] Phone #: ext- [phone] 07/06/2021 02:40 Patient: BRAD MEEK Sex: F : 1985 Age: 36yTRIAGEArrived by private vehicle. Historian: patient. Accompanied by friend. ( left lower leg cellulitis pt.currently being treated with clindamycin was seen at urgent care on thu for ).Acuity: LEVEL 3.Chief Complaint: LEFT LOWER EXTREMITY PAIN, SWELLING and REDNESS.No injury occurred. Onset. (3 days ago). She has had trouble walking.Treatment COSMETIC CONSULTANT:None. --02:58 07/06/21 Luann Monae R.N.02:50 07/06/21. BP: [...] --03:23 07/06/21 Francoise Peterson R.N.Penicillins. --03:23 07/06/21 Francoise Peterson R.N.The following entry was struck by Francoise Peterson R.N., 03:23 (07/06/21) Reason - other. PNC. --02:54 07/06/21 Luann Monae R.N.The following entry was struck by Francoise Peterson R.N., 03:23 (07/06/21) Reason - other. Doxicicline. --02:54 07/06/21 Luann Monae R.N. .PROBLEMS:Abrasion(s).Pedal Edema. --02:55 07/06/21 Luann Monae R.N. 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 2 Clinical Report - Physicians/Mid Levels [facility] Emergency Department [address] [place] [address] Phone #: ext- [phone] 07/06/2021 02:40 [id number] Sex: F : 1985 Age: 36y PNC. [...] leg. 3 Clinical Report - Physicians/Mid Levels [facility] Emergency Department [address] [place] [address] Phone #: ext- [phone] 07/06/2021 02:40 Patient: [...] I understand that a doctor at this [facility] wants to give me certain medical care. The doctor explained that care to me, and I understand what that care is. The doctor also explained to me what could happen to me if I leave here without having that care, and I understand what he said.(Electronically signed by Fady Palma 07/07/2021 07:46) 4Clinical Report - Physicians/Mid Levels [facility] Emergency Department [address] [place] [address] Phone #: ext- [phone] 07/06/2021 02:40 Patient: BRAD MEEK Sex: F : 1985 Age: 36y Name Value Range Interpretation Code Description Data Alia rce(s) Supporting Document(s) ID Date Data Source [id number] 07/02/2021 02:15:00 PM EDT [facility] Name Value Range Interpretation Code Description Data Alia rce(s) Supporting Document(s) SARS-CoV-2 RNA Resp Ql NUBIA+probe DETECTED [facility] This lab was ordered by HANNA pennington and reported by [facility]AN[facility] Jewell. ID Date Data Source [id number] 01/10/2021 08:15:00 PM EDT [facility] Name Value Range Interpretation Code Description Data Alia rce(s) Supporting Document(s) SARS-CoV-2 (COVID-19) N gene [Presence] in Respiratory specimen by NUBIA with probe detection NEGATIVE [facility] This lab was ordered by [facility] and reported by [email or web address]. ID Date Data Source [id number] 01/10/2021 12:00:00 AM EDT [facility] Name Value Range Interpretation Code Description Data Alia rce(s) Supporting Document(s) Carestart Rapid COVID Antigen Test Negative [facility] This lab was reported by [facility]. Procedure Social History No Information
--- NOTE | 2021-07-10 21:56 | REPVR ---
PROCEDURE INFORMATION: Exam: US Left Non-Vascular Joint or Other Extremity Structure Exam date and time: 07/10/2021 9:09 PM Age: 36 years old Clinical indication: Pain; Lower leg; Left; Additional info: Pain, swelling left lower leg, R/O abscess TECHNIQUE: Imaging protocol: Left US joint or other nonvascular extremity structure or structures. Real-time ultrasound with image documentation. Limited study. Exam focused on the lower extremity in the region of clinical interest. COMPARISON: US Duplex, Ext,LOWER veins,unilat 06/02/2017 9:22 PM FINDINGS: Soft tissues: Sonographic evaluation in the popliteal fossa demonstrates a complex hypoechoic structure with internal debris measuring 5.4 x 4.7 x 1.9 cm. Overlying subcutaneous fat is hyperemic on color flow Doppler. Differential diagnosis includes hematoma or abscess depending upon clinical evaluation. IMPRESSION: Sonographic evaluation in the popliteal fossa demonstrates a complex hypoechoic structure with internal debris measuring 5.4 x 4.7 x 1.9 cm. Differential diagnosis includes hematoma or abscess depending upon clinical evaluation. Electronically signed by: Zhou Portillo On 07/10/2021 21:56:28 PM
[2021-07-10 22:06] LABS: BASO % 0.2 % (0.0-1.0); EOS % 0.3 % (0.0-3.0); HEMATOCRIT 38.6 % (36.0-47.0); HEMOGLOBIN 13.2 g/dl (12.0-15.5); LYMPH % 20.3 % (24.0-44.0); MEAN CORPUSCULAR HEMOGLOBIN 29.7 pg (27.0-33.0); MEAN CORPUSCULAR HGB CONC 34.2 g/dl (32.0-36.5); MEAN CORPUSCULAR VOLUME 86.9 fl (80.0-96.0); MONO # 0.5 10^3/uL (0.0-0.8); MONO % 5.3 % (2.0-8.0); NEUTROPHILS # 7.3 10^3/uL (1.5-8.5); NEUTROPHILS % 73.2 % (36.0-66.0); PLATELET COUNT, AUTOMATED 259 10^3/uL (150-450); RED BLOOD COUNT 4.44 10^6/uL (4.00-5.40)
[2021-07-10] MEDS ORDERED: LIDOCAINE 1% MDV 20ML VIAL SC ONE (22:10)
[2021-07-10 22:33] LABS: BLOOD UREA NITROGEN 21 MG/DL (7-18); C REACTIVE PROTEIN QUANTITATIV 7.91 MG/DL (0.00-0.30); CALCIUM LEVEL 9.7 MG/DL (8.5-10.1); CARBON DIOXIDE LEVEL 36 MEQ/L (21-32); CHLORIDE LEVEL 99 MEQ/L (98-107); CREATININE FOR GFR 0.73 MG/DL (0.55-1.30); GLOMERULAR FILTRATION RATE > 60.0 (>60); GLUCOSE, FASTING 120 MG/DL (70-100); POTASSIUM SERUM 4.6 MEQ/L (3.5-5.1); SODIUM LEVEL 135 MEQ/L (136-145)
[2021-07-10] MEDS ORDERED: LORazepam 2 MG/ML VIAL IV STA (23:06)
[2021-07-11] MEDS ORDERED: VALT1TAB PO (00:33)
[2021-07-11] MEDS ORDERED: valACYclovir HCL 500 MG TAB PO ONE (01:15)
[2021-07-11 01:18] VITALS: BP 138/87
[2021-07-12] MEDS ORDERED: ONDA4TAB6 PO (19:14)
[2021-07-12] MEDS ORDERED: CLEO300C2 PO (19:20)
[2021-07-14] MEDS ORDERED: ZYVO1TAB PO (08:27)
== END 2021-07-11 01:24 | disposition home or self-care (01) ==
LOC: M ED 19:14
DX: L02.416 Cutaneous abscess of left lower limb (principal); M79.7 Fibromyalgia; J45.909 Unspecified asthma, uncomplicated; Z87.440 Personal history of urinary (tract) infections; F41.9 Anxiety disorder, unspecified; F32.9 Major depressive disorder, single episode, unspecified; F90.9 Attention-deficit hyperactivity disorder, unspecified type; F40.00 Agoraphobia, unspecified; Z79.899 Other long term (current) drug therapy; Z88.0 Allergy status to penicillin; Z88.2 Allergy status to sulfonamides; Z88.1 Allergy status to other antibiotic agents; Z91.040 Latex allergy status; Z91.018 Allergy to other foods; Z88.8 Allergy status to other drugs, medicaments and biological substances; Z91.010 Allergy to peanuts
CPT/HCPCS: 10060; 76882; 80048; 85025; 86140; 87040; 96365; 96366; 96375; 99284; J2060

== ENCOUNTER 2021-07-12 14:11 | Emergency (ER) | payer OTHER ==
[~2021-07-12] VITALS: Ht 162.6 cm; Wt 74.1 kg
[~2021-07-12 14:11] MED LIST changes: +VALT1TAB PO
--- OUTSIDE RECORDS SUMMARY | 2021-07-12 14:19 | CCD ---
Author Author [facility] Organization [facility] Address Unknown Phone Unavailable Care Team Providers Care Leadership Development Manager Name Role Phone Maring, Eddie PA Unavailable [...] T Lauren PA Unavailable Unavailable Feola, T Laurne PA Unavailable Unavailable Feola, T Lauren PA Unavailable Unavailable Feola, T Lauren PA Unavailable Unavailable Feola, T Lauren PA Unavailable Unavailable Feola, T Lauren PA Unavailable Unavailable Feola, T Lauren PA Unavailable Unavailable Feola, T Lauren PA Unavailable Unavailable Feola, T Lauren PA Unavailable Unavailable Feola, T Lauren PA Unavailable Unavailable Feola, T Luaren PA Unavailable Unavailable Feola, T Lauren PA [...] Lauren PA Unavailable Unavailable Tomasz Castro Unavailable [phone] Tomasz Castro Unavailable [phone] Tomasz Castro Unavailable [phone] Tomasz Castro Unavailable [phone] Tomasz Castro Unavailable [phone] Tomasz Castro Unavailable [phone] NON, PHYSICIAN STAFF Unavailable Unavailable Re-disclosure Warning [...] is protected by Article 27-F of the [facility] Public Health law. If you continue you may have access to information: Regarding HIV / AIDS; Provided by facilities licensed or operated by the [facility] Office of Mental Health; or Provided by the [facility] Office for People With Developmental Disabilities. If such information is present, then the following [facility] mandated warning applies: This information has [...] law may result in a fine or detention sentence or both. A general authorization for the release of medical or other information is NOT sufficient authorization for further disc losure. Allergies and Adverse Reactions Type Description Substance Reaction Status Data Source(s ) Drug allergy NOVOCAINE NOVOCAINE SWELLING [facility] Propensity to adverse reactions LATEX LATEX RASH [facility] Drug allergy DOXYCYCLINE DOXYCYCLINE SWELLING [facility] Drug allergy CODEINE CODEINE [facility] Propensity to adverse reactions SULFA (sulfonamide) SULFA (sulfo namide) ANAPHYLAXIS [facility] Propensity to adverse reactions PCN (penicillin) PCN (penicillin) SWE LLING [facility] Family History Family Member Name Family Member Gender Family Member Status Date o f Status Description Data Source(s) Unknown Female Problem [facility] ([facility]) Unknown Female Problem [facility] ([facility] ) Encounters Encounter Providers Location Date Indications Data Source(s ) Emergency Attender: Fady Palma MDConsultant: STAFF NON 07/06/2021 02:41:00 AM EDT - 07/06/2021 06:10:[address] [facility] Patient discharged. Outpatient Attender: Tomasz Patel tender: Gloria Henriquezender: Eddie ANTUNEZ 07/02/2021 12:59:35 PM EDT - 07/02/2021 01:55:05 PM EDT [facility] ([facility]) Outpatient Attender: Lauren ANTUNEZ 08:01:36 PM EDT - 01/10/2021 08:30:45 PM EDT [facility] ([facility] ) Medications Medication Brand Name [...] DAILY DOSE = ONE CAPSULE SOLD: 06/24/2021 [facility] 150 mg 05/16/2021 12:00:00 AM EDT tablet sustained-releas e 12 hr 28 TAKE ONE TABLET BY MOUTH EVERY DAY TAKE ONE TABLET BY MOUTH EVERY DAY SOLD: 05/17/2021 [facility] 24 HR Amphetamine aspartate 7.5 MG [...] MAXIMUM DAILY DOSE = 1 SOLD: 05/16/2021 [facility] 8-2 mg 05/10/2021 12:00:00 AM EDT film [address] ONE TO TWO FILMS UNDER THE TONGUE EVERY DAY FOR ADDICTION AND NEEDED FOR PAIN MAXIMUM DAILY DOSE = 2 PLACE ONE TO TWO FILMS UNDER THE TONGUE EVERY DAY FOR ADDICTION AND NEEDED FOR PAIN MAXIMUM DAILY DOSE = 2 SOLD: 05/16/2021 [facility] 24 HR Amphetamine aspartate 2.5 MG [...] MAXIMUM DAILY DOSE = 1 SOLD: 05/16/2021 [facility] 24 HR Amphetamine aspartate 7.5 MG [...] type / Coverage type Policy ID Covered green party ID Covered green party's relationship to styles Policy Styles Plan Information COMMERCIAL GENERIC [id number] Britni 1 [id number] [facility] [id number] SP [id number] [facility] COMMUNITY PL[facility] [id number] SP [id number] [facility] Preferred Provider Org. [id number] Self [id number] [facility] Commercial Insurance Co. [id number] Self [id number] [facility] O [id number] S [id number] [facility] DEPT [facility] [id number] SP [facility] [id number] ANSI-Medicaid [id number] [facility] [id number] SP [id number] [facility] Health Maintenance Organization (HMO) [id number] Self MEDICAID -O/P EMERGENCY ROOM [id number] 18 [id number] [facility] [place] P [id number] S [id number] P UNAVAILABLE UNAVAILA BLE PMA MANAGEMENT ED [facility] P [id number] S [id number] PMA MANAGEMENT ED [facility] SK [id number] SP [id number] PMA MANAGEMENT ED [facility] [id number] SP [id number] OTHER WORKERS COMPENSATION [id number] SP [id number] BLUE CROSS [employer] PLAN [id number] SP [id number] [facility]) P [id number] S [id number] [employer] S [id number] S [id number] BLUE CROSS BLUE SHIELD-O/P [id number] 18 [id number] BLUE CROSS BLUE SHIELD-O/P [id number] O BLUE [id number] SP [id number] COMMUNITY PLAN MCDO [id number] SP [id number] [place] [id number] SP [id number] D UNHC AMERICHOICE XIX O [id number] 18 [id number] [place] [id number] SP [id number] MEDICAID [id number] SP [id number] Problems, Conditions, and Diagnoses Code Display Name Description Problem Type Effective Dates Data Source(s) D78628 Latex allergy status Latex allergy status Diagnosis 07/06/2021 02:41:[address] [facility] [id number] Personal history of nicotine dependence Personal history of nicotine dependence Diagnosis 07/06/2021 02:41:[address] [facility] Z5320 Procedure and treatment not carried out because of patient's decision for unspecified reasons Procedure and treatment not carried out because of patient's decision for unspecified reasons Diagnosis 07/06/2021 02:41:[address] [facility] Z29366 Unspecified asthma, uncomplicated Unspecified as thma, uncomplicated Diagnosis 07/06/2021 02:41:[address] [facility] T26762 Cellulitis of left lower limb Cellulitis of left lower limb Diagnosis 07/06/2021 02:41:[address] [facility] F93211 Pain in left lower leg Pain in left lower leg Diagnosi s 07/06/2021 02:41:[address] [facility] Surgeries/Procedures No Information Results ID Date Data Source [id number] 07/06/2021 02:41:[address] [facility] [address] [facility] Emergency Department [address] [place] [address] Phone #: [phone] 07/06/2021 02:40 Patient: BRAD MEEK Sex: F : 1985 Age: 36yWEIGHT:72.5 kg (S) HEIGHT:64 inches (S) BMI:27.5ALLERGIES: Doxycycline, Latex, Penicillins, Sulfa AntibioticsCHIEF COMPLAINT: pain, swellingDIAGNOSIS: Cellulitis of skinLAB ORDERSOrder Description Priority Entered Acknowledged InitialedCBC w Diff STAT 03:12 07/06/2021 Ack'd: 04:08 Francoise Peterson R.N., Jack ; Cancelled: Patient Refusal 06:07 Francoise Peterson R.N.Urinalysis (Clean STAT 03:12 07/06/2021 Ack'd: 04:08 06:07 Nicholas,Catch) Fady aPlma ; Francoise Peterson R.N., R.N.Beta-HCG, Qual STAT 03:12 07/06/2021 Ack'd: 04:08 06:07 Nicholas,Urine Fady Palma ; Francoise Petesron R.N., R.N.CRP STAT 03:12 07/06/2021 Ack'd: 04:08 [...] Francoise BurgosSaline 50 ml spike [address] [facility] Emergency Department [address] [place] [address] Phone #: ext- [phone] 07/06/2021 02:40 Patient: BRAD MEEK Sex: F : 1985 Age: 36ybag (NOW x1)GENERAL ORDERSOrder Description Priority Entered Acknowledged Initialed[Electronically signed by Francoise Peterson R.N. (06:09 07/06/2021)][Electronically signed by Fady Palma (07:46 07/07/2021)][Electronically locked by Francoise Peterson R.N. (06:09 07/06/2021)] Name Value Range Interpretation Code Description Data Alia rce(s) Supporting Document(s) ID Date Data Source [id number] 07/06/2021 02:41:[address] [facility] [address] [facility] Emergency Department [address] [place] [address] Phone #: ext- [phone] 07/06/2021 02:40 Patient: [...] rce(s) Supporting Document(s) ID Date Data Source [id number] 07/06/2021 02:41:[address] [facility] [address] [facility] Emergency Department [address] [place] [address] Phone #: ext- [phone] 07/06/2021 02:40 Patient: [...] rce(s) Supporting Document(s) ID Date Data Source [id number] 07/06/2021 02:41:[address] [facility] [address] [facility] Emergency Department [address] [place] [address] Phone #: ext- [phone] 07/06/2021 02:40 Patient: [...] I understand that a [facility] to give me certain medicalcare. The doctor explained that care to me, and I understand what that care is. The doctor also explainedto me what could happen to me if I leave here without having that care, and I understand what he said. ADDITIONAL INFORMATION [address] [facility] Emergency Department [address] [place] [address] Phone #: ext- [phone] 07/06/2021 02:40 Patient: [...] from the skin (pus) [address] [facility] Emergency Department [address] [place] [address] Phone #: ext- [phone] 07/06/2021 02:40 Patient: BRAD MEEK Sex: F : 1985 Age: 36y Fever higher of 100.4 F (38.0 C) or higher after 2 days on antibiotics [employer]. [address] [place] [address]89. All rights reserved. This information is not [...] wound. Remove any artificial nails and nail lithuanian.Treating household members and your environmentIf you have been diagnosed with possible MRSA infection, those living with you are at higher risk ofcarrying the bacteria on their skin or in their nose, even if there is no sign of infection. Bacteria must [address] [facility] Emergency Department [address] [place] [address] Phone #: ext- [phone] 07/06/2021 02:40 Patient: [...] available, you can use an alcohol-based hand wire worker. Rub the wire worker over the entire surface of the hands, fingers, and wrists until dry. Don't share personal items such as towels, washcloths, razors, clothing, or uniforms. Wash soiled sheets, towels or clothes in hot water with laundry detergent. Use an automatic clothes dryer set on high to kill any remaining bacteria. If you use a gym, wipe down equipment with an alcohol-based wire worker before and after each use. Wipe the [...] drainage from the wound [address] [facility] Emergency Department [address] [place] [address] Phone #: ext- [phone] 07/06/2021 02:40 Patient: BRAD MEEK Sex: F : 1985 Age: 36y New fever over 100.4 F (38.0 C), or as directed by the healthcare provider [phone] [employer]. [address] [place] [address]. All rights reserved. This information is not intended as asubstitute for professional medical care. Always follow your healthcare professional's instructions. You have been given the following additional information: Cellulitis Staph Skin Infection, Possible MR SA(Electronically signed by Fady Palma 07/07/2021 07:46) Name Value Range Interpretation Code Description Data Alia rce(s) Supporting Document(s) ID Date Data Source [id number] 07/06/2021 02:41:[address] [facility] 1 Clinical Report - Nurses [facility] Emergency Department [address] [place] [address] Phone #: ext- [phone] 07/06/2021 02:40 Patient: BRAD MEEK Sex: F : 1985 Age: 36yTRIAGEArrived by private vehicle. Historian: patient. Accompanied by friend. ( left lower leg cellulitis pt.currently being treated with clindamycin was seen at urgent care on thu for ).Acuity: LEVEL 3.Chief Complaint: LEFT LOWER EXTREMITY PAIN, SWELLING and REDNESS.No injury occurred. Onset. (3 days ago). She has had trouble walking.Treatment KENO WRITER:None. --02:58 07/06/21 Luann Monae R.N.02:50 07/06/21. BP: [...] Monae R.N. 2 Clinical Report - Nurses 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 Emergency Department [address] [place] [address] Phone #: ext- [phone] 07/06/2021 02:40 Patient: [...] rce(s) Supporting Document(s) ID Date Data Source [id number] 07/06/2021 02:41:[address] [facility] 1 Clinical Report - Physicians/Mid Levels [facility] Emergency Department [address] [place] [address] Phone #: ext- [phone] 07/06/2021 02:40 Patient: [...] Latex. 2 Clinical Report - Physicians/Mid Levels [facility] Emergency Department [address] [place] [address] Phone #: ext- [phone] 07/06/2021 02:40 [id number] Sex: F : 1985 Age: 36y PNC. [...] leg. 3 Clinical Report - Physicians/Mid Levels [facility] Emergency Department [address] [place] [address] Phone #: ext- [phone] 07/06/2021 02:40 Patient: [...] I understand that a doctor at this [facility] wants to give me certain medical care. The doctor explained that care to me, and I understand what that care is. The doctor also explained to me what could happen to me if I leave here without having that care, and I understand what he said.(Electronically signed by Fady Palma 07/07/2021 07:46) 4Clinical Report - Physicians/Mid Levels [facility] Emergency Department [address] [place] [address] Phone #: ext- [phone] 07/06/2021 02:40 Patient: BRAD MEEK Sex: F : 1985 Age: 36y Name Value Range Interpretation Code Description Data Alia rce(s) Supporting Document(s) ID Date Data Source [id number] 07/02/2021 02:15:00 PM EDT [facility] Name Value Range Interpretation Code Description Data Alia rce(s) Supporting Document(s) SARS-CoV-2 RNA Resp Ql NUBIA+probe DETECTED [facility] This lab was ordered by HANNA pennington and reported by HANNA Jewell. ID Date Data Source [id number] 01/10/2021 08:15:00 PM EDT [facility] Name Value Range Interpretation Code Description Data Alia rce(s) Supporting Document(s) SARS-CoV-2 (COVID-19) N gene [Presence] in Respiratory specimen by NUBIA with probe detection NEGATIVE [facility] This lab was ordered by [facility] and reported by [facility]. ID Date Data Source [id number] 01/10/2021 12:00:00 AM EDT [facility] Name Value Range Interpretation Code Description Data Alia rce(s) Supporting Document(s) Carestart Rapid COVID Antigen Test Negative [facility] This lab was reported by [facility]. Procedure Social History No Information
--- OUTSIDE RECORDS SUMMARY | 2021-07-12 17:52 | CCD ---
Author Author [facility] Organization [facility] Address Unknown Phone Unavailable Care Team Providers Care Clinical Dental Technician Name Role Phone Maring, Eddie PA Unavailable [...] Maring, Eddie PA Unavailable Unavailable Gloria Turner PA Unavailable Unavailable Fady Palma MD Unavailable Unavailable [...] Lauren PA Unavailable Unavailable Tomasz Castro Unavailable [phone] Tomasz Castro Unavailable [phone] Tomasz Castro Unavailable [phone] Tomasz Castro Unavailable [phone] Tomasz Castro Unavailable [phone] Tomasz Castro Unavailable [phone] NON, PHYSICIAN STAFF Unavailable Unavailable Re-disclosure Warning [...] is protected by Article 27-F of the [facility] Public Health law. If you continue you may have access to information: Regarding HIV / AIDS; Provided by facilities licensed or operated by the [facility] Office of Mental Health; or Provided by the [facility] Office for People With Developmental Disabilities. If such information is present, then the following [facility] mandated warning applies: This information has [...] law may result in a fine or usp sentence or both. A general authorization for the release of medical or other information is NOT sufficient authorization for further disc losure. Allergies and Adverse Reactions Type Description Substance Reaction Status Data Source(s ) Drug allergy NOVOCAINE NOVOCAINE SWELLING [facility] Propensity to adverse reactions LATEX LATEX RASH [facility] Drug allergy DOXYCYCLINE DOXYCYCLINE SWELLING [facility] Drug allergy CODEINE CODEINE [facility] Propensity to adverse reactions SULFA (sulfonamide) SULFA (sulfo namide) ANAPHYLAXIS [facility] Propensity to adverse reactions PCN (penicillin) PCN (penicillin) SWE LLING [facility] Family History Family Member Name Family Member Gender Family Member Status Date o f Status Description Data Source(s) Unknown Female Problem [facility]ENT ([facility]) Unknown Female Problem [facility] ([facility] Encounters Encounter Providers Location Date Indications Data Source(s ) Emergency Attender: Fady Palma MDConsultant: STAFF NON 07/06/2021 02:41:00 AM EDT - 07/06/2021 06:10:00 AM EDT [facility] Patient discharged. Outpatient Attender: Tomasz Patel tender: Gloria CHANDRAttender: Eddie ANTUNEZ 07/02/2021 12:59:35 PM EDT - 07/02/2021 01:55:05 PM EDT [facility] ([facility]) Outpatient Attender: Lauren ANTUNEZ 08:01:36 PM EDT - 01/10/2021 08:30:45 PM EDT [facility] ([facility] ) Medications Medication Brand Name [...] DAILY DOSE = ONE CAPSULE SOLD: 06/24/2021 [facility] 150 mg 05/16/2021 12:00:00 AM EDT tablet sustained-releas e 12 hr 28 TAKE ONE TABLET BY MOUTH EVERY DAY TAKE ONE TABLET BY MOUTH EVERY DAY SOLD: 05/17/2021 [facility] 24 HR Amphetamine aspartate 7.5 MG [...] MAXIMUM DAILY DOSE = 1 SOLD: 05/16/2021 [facility] 8-2 mg 05/10/2021 12:00:00 AM EDT film [address] ONE TO TWO FILMS UNDER THE TONGUE EVERY DAY FOR ADDICTION AND NEEDED FOR PAIN MAXIMUM DAILY DOSE = 2 PLACE ONE TO TWO FILMS UNDER THE TONGUE EVERY DAY FOR ADDICTION AND NEEDED FOR PAIN MAXIMUM DAILY DOSE = 2 SOLD: 05/16/2021 [facility] 24 HR Amphetamine aspartate 2.5 MG [...] MAXIMUM DAILY DOSE = 1 SOLD: 05/16/2021 [facility] 24 HR Amphetamine aspartate 7.5 MG [...] DAILY DOSE = 1 CAPSULE SOLD: 04/22/2021 [facility] 24 HR Amphetamine aspartate 2.5 MG [...] type / Coverage type Policy ID Covered alliance party ID Covered alliance party's relationship to styles Policy Styles Plan Information COMMERCIAL GENERIC [id number] Britni 1 [id number] [facility] [id number] SP [id number] [facility] COMMUNITY PLAN MCDO [id number] SP [id number] [facility] Preferred Provider Org. [id number] Self [id number] [facility] Commercial Insurance Co. [id number] Self [id number] [facility]) O [id number] S [id number] [facility] DEPT [facility] [id number] SP [facility] [id number] ANSI-Medicaid [id number] [facility] [id number] SP [id number] [facility] Health Maintenance Organization (HMO) [id number] Self MEDICAID -O/P EMERGENCY ROOM [id number] 18 [id number] [facility] [place] P [id number] S [id number] P UNAVAILABLE UNAVAILA BLE PMA MANAGEMENT ED [facility] P [id number] S [id number] PMA MANAGEMENT ED [facility] SK [id number] SP [id number] PMA MANAGEMENT ED [facility] [id number] SP [id number] OTHER WORKERS COMPENSATION [id number] SP [id number] BL[employer] PLAN [id number] SP [id number] [facility](MCAID) P [id number] S [id number] [employer] S [id number] S [id number] BLUE CROSS BLUE SHIELD-O/P [id number] 18 [id number] BLUE CROSS BLUE SHIELD-O/P [id number] 18 [id number] [facility] [id number] SP [id number] [employer] COMMUNITY PLAN [facility] [id number] SP [id number] [place] [id number] SP [id number] UNHC AMERICHOICE XIX O [id number] 18 [id number] [place] [id number] SP [id number] MEDICAID [id number] SP [id number] Problems, Conditions, and Diagnoses Code Display Name Description Problem Type Effective Dates Data Source(s) H91843 Latex allergy status Latex allergy status Diagnosis 07/06/2021 02:41:00 AM EDT [facility] G10706 Personal history of nicotine dependence Personal history of nicotine dependence Diagnosis 07/06/2021 02:41:00 AM EDT [facility] Z5320 Procedure and treatment not carried out because of patient's decision for unspecified reasons Procedure and treatment not carried out because of patient's decision for unspecified reasons Diagnosis 07/06/2021 02:41:00 AM EDT [facility] Q04396 Unspecified asthma, uncomplicated Unspecified as thma, uncomplicated Diagnosis 07/06/2021 02:41:00 AM EDT [facility] Z02040 Cellulitis of left lower limb Cellulitis of left lower limb Diagnosis 07/06/2021 02:41:00 AM EDT [facility] N77723 Pain in left lower leg Pain in left lower leg Diagnosi s 07/06/2021 02:41:00 AM EDT [facility] Surgeries/Procedures No Information Results ID Date Data Source [id number] 07/06/2021 02:41:00 AM EDT [facility] 1 OrderSheet [facility] Emergency Department [address] [place] [address] Phone #: [phone] 07/06/2021 02:40 Patient: BRAD MEEK Sex: F [...] 04:08 06:07 Nicholas,Catch) Fady Palma ; Francoise ePterson R.N., R.N.Beta-HCG, Qual STAT 03:12 07/06/2021 Ack'd: 04:08 06:07 Nicholas,Urine Fady Palma ; Francoise Peterson R.N., R.N.CRP STAT 03:12 07/06/2021 Ack'd: 04:08 06:07 Louie Peterson Jack ; Francoise Peterson R.N. Francoise R.N.CMP STAT 03:12 07/06/2021 Ack'd: 04:08 06:07 Louie Peterson Jack ; Francoise PetersonN. Francoise R.N.Blood Culture STAT 03:12 07/06/2021 Ack'd: 04:08 06:07 Nicholas,q10m X2 (Sched Fady Palma ; Francoise PetersonN. Francoise R.NTal03:12 07/06/2021)Blood Culture STAT 03:12 07/06/2021 Ack'd: 04:08 Francoise Peterson.N.q10m X2 (Sched Fady Palma ; Initialed: 06:07 Francoise PetersonNTal03:22 07/06/2021) Cancelled: Patient Refusal 06:08 Francoise Peterson R.N.DIAGNOSTIC STUDY ORDERSOrder Description Priority Entered Acknowledged InitialedMEDICATION/IV/DRIP/FLUID ORDERSOrder Description Priority Entered Acknowledged InitialedRachelz (Adult) 03:14 07/06/2021 04:08 NicholasIVPB 1000 mg with Fady Palma ; Francoise BurgosSaline 50 ml spike 2 OrderSheet [facility] Department [address] [place] [address] Phone #: ext- [phone] 07/06/2021 02:40 Patient: BRAD MEEK Sex: F : 1985 Age: 36ybag (NOW x1)GENERAL ORDERSOrder Description Priority Entered Acknowledged Initialed[Electronically signed by Francoise Peterson R.N. (06:09 07/06/2021)][Electronically signed by Fady Palma (07:46 07/07/2021)][Electronically locked by Francoise Peterson R.N. (06:09 07/06/2021)] Name Value Range Interpretation Code Description Data Alia rce(s) Supporting Document(s) ID Date Data Source [id number] 07/06/2021 02:41:00 AM EDT [facility] 1 Medication Reconciliation Report [facility] [address] [place] [address] Phone #: ext- [phone] 07/06/2021 02:40 Patient: [...] rce(s) Supporting Document(s) ID Date Data Source [id number] 07/06/2021 02:41:00 AM EDT [facility] 1 Medication Administration Record [facility] [address] [place] [address] Phone #: ext- [phone] 07/06/2021 02:40 Patient: [...] rce(s) Supporting Document(s) ID Date Data Source [id number] 07/06/2021 02:41:00 AM EDT [facility] 1 General Instructions [facility] [address] [place] [address] Phone #: [phone]- [phone] 07/06/2021 02:40 Patient: [...] I understand that a doctor at [facility] wants to give me certain medicalcare. The doctor explained that care to me, and I understand what that care is. The doctor also explainedto me what could happen to me if I leave here without having that care, and I understand what he said. ADDITIONAL INFORMATION 2 General Instructions [facility] [address] [place] [address] Phone #: [phone]- [phone] 07/06/2021 02:40 Patient: [...] from the skin (pus) 3 General Instructions [facility] [address] [place] [address] Phone #: ext- [phone] 07/06/2021 02:40 Patient: BRAD MEEK Sex: F : 1985 Age: 36y Fever higher of 100.4 F (38.0 C) or higher after 2 days on antibiotics [facility]. [address] [place] [address]. All rights reserved. This information is not [...] wound. Remove any artificial nails and nail salvadorean.Treating household members and your environmentIf you have been diagnosed with possible MRSA infection, those living with you are at higher risk ofcarrying the bacteria on their skin or in their nose, even if there is no sign of infection. Bacteria must 4 General Instructions [facility] Department [address] [place] [address] Phone #: ext- [phone] 07/06/2021 02:40 Patient: [...] available, you can use an alcohol-based hand acetylene operator. Rub the acetylene operator over the entire surface of the hands, fingers, and wrists until dry. Don't share personal items such as towels, washcloths, razors, clothing, or uniforms. Wash soiled sheets, towels or clothes in hot water with laundry detergent. Use an automatic clothes dryer set on high to kill any remaining bacteria. If you use a gym, wipe down equipment with an alcohol-based acetylene operator before and after each use. Wipe the [...] drainage from the wound 5 General Instructions [facility] Department [address] [place] [address] Phone #: ext- [phone] 07/06/2021 02:40 Patient: BRAD MEEK Sex: F : 1985 Age: 36y New fever over 100.4 F (38.0 C), or as directed by the healthcare provider [phone] [employer]. [address] [place] [address]. All rights reserved. This information is not intended as asubstitute for professional medical care. Always follow your healthcare professional's instructions. You have been given the following additional information: Cellulitis Staph Skin Infection, Possible MR (Electronically signed by Fady Palma 07/07/2021 07:46) Name Value Range Interpretation Code Description Data Alia rce(s) Supporting Document(s) ID Date Data Source [id number] 07/06/2021 02:41:00 AM EDT [facility] 1 Clinical Report - Nurses [facility] [address] [place] [address] Phone #: ext- [phone] 07/06/2021 02:40 Patient: BRAD MEEK Sex: F : 1985 Age: 36yTRIAGEArrived by private vehicle. Historian: patient. Accompanied by friend. ( left lower leg cellulitis pt.currently being treated with clindamycin was seen at urgent care on thu for same).Acuity: LEVEL 3.Chief Complaint: LEFT LOWER EXTREMITY PAIN, SWELLING and REDNESS.No injury occurred. Onset. (3 days ago). She has had trouble walking.Treatment HISTORIAN DRAMATIC ARTS:None. --02:58 07/06/21 Luann Monae R.N.02:50 07/06/21. BP: [...] Monae R.N. 2 Clinical Report - Nurses [facility] [address] [place] [address] Phone #: ext- [phone] 07/06/2021 02:40 Patient: [...] to left AC area pt. told this group underwriter its fromusing IV drugs but not recently. [...] post- medication 3 Clinical Report - Nurses [facility] [address] [place] [address] Phone #: ext- [phone] 07/06/2021 02:40 Patient: [...] rce(s) Supporting Document(s) ID Date Data Source [id number] 07/06/2021 02:41:00 AM EDT [facility] 1 Clinical Report - Physicians/Mid Levels [facility] [address] [place] [address] Phone #: ext- [phone] 07/06/2021 02:40 Patient: [...] Latex. 2 Clinical Report - Physicians/Mid Levels [facility] [address] [place] [address] Phone #: ext- [phone] 07/06/2021 02:40 Patient: [facility] [id number] Sex: F : 1985 Age: 36y PNC. [...] leg. 3 Clinical Report - Physicians/Mid Levels [facility] [address] [place] [address] Phone #: ext- [phone] 07/06/2021 02:40 Patient: [...] I understand that a doctor at this hospital wants to give me certain medical care. The doctor explained that care to me, and I understand what that care is. The doctor also explained to me what could happen to me if I leave here without having that care, and I understand what he said.(Electronically signed by Fady Palma 07/07/2021 07:46) 4Clinical Report - Physicians/Mid Levels [facility] [address] [place] [address] Phone #: ext- [phone] 07/06/2021 02:40 Patient: BRAD MEEK Sex: F : 1985 Age: 36y Name Value Range Interpretation Code Description Data Alia rce(s) Supporting Document(s) ID Date Data Source [id number] 07/02/2021 02:15:00 PM EDT [facility] Name Value Range Interpretation Code Description Data Alia rce(s) Supporting Document(s) SARS-CoV-2 RNA Resp Ql NUBIA+probe DETECTED [facility] This lab was ordered by HANNA pennington and reported by HAN[facility] Jewell. ID Date Data Source [id number] 01/10/2021 08:15:00 PM EDT [facility] Name Value Range Interpretation Code Description Data Alia rce(s) Supporting Document(s) SARS-CoV-2 (COVID-19) N gene [Presence] in Respiratory specimen by NUBIA with probe detection NEGATIVE [facility] This lab was ordered by [facility] and reported by [facility]. ID Date Data Source [id number] 01/10/2021 12:00:00 AM EDT [facility] Name Value Range Interpretation Code Description Data Alia rce(s) Supporting Document(s) Carestart Rapid COVID Antigen Test Negative [facility] This lab was reported by [facility]. Procedure Social History No Information
[2021-07-12] MEDS ORDERED: LIDOCAINE 1% MDV 20ML VIAL SC ONE (18:25)
[2021-07-12] MEDS ORDERED: ALPRAZolam 0.5 MG TAB PO ONE (18:55)
[2021-07-12] MEDS ORDERED: ONDA4TAB6 PO (19:14)
[2021-07-12] MEDS ORDERED: ONDANSETRON 4 MG ORAL DISINTEGRATING TAB PO ONE (19:15)
[2021-07-12] MEDS ORDERED: CLEO300C2 PO (19:20)
[2021-07-12 19:25] VITALS: BP 129/76
[2021-07-14] MEDS ORDERED: ZYVO1TAB PO (08:27)
== END 2021-07-12 19:37 | disposition home or self-care (01) ==
LOC: M ED 14:11 → EEVIPCON 14:11 → M ED 19:37
DX: L02.416 Cutaneous abscess of left lower limb (principal); M79.7 Fibromyalgia; J45.909 Unspecified asthma, uncomplicated; F17.200 Nicotine dependence, unspecified, uncomplicated; F19.11 Other psychoactive substance abuse, in remission; Z79.899 Other long term (current) drug therapy; Z91.018 Allergy to other foods; Z88.0 Allergy status to penicillin; Z88.2 Allergy status to sulfonamides; Z91.010 Allergy to peanuts; Z88.1 Allergy status to other antibiotic agents; Z88.8 Allergy status to other drugs, medicaments and biological substances